=== PATIENT | male | born 1990 | race Caucasian/White ===

== ENCOUNTER 2017-04-04 11:16 | Emergency (ER) | payer SELFPAY, BC | END 2017-04-04 12:03 | disposition home or self-care (01) | LOC: M ED 11:16 | DX: L03.211 Cellulitis of face (principal); F17.210 Nicotine dependence, cigarettes, uncomplicated | CPT/HCPCS: 99282 ==

== ENCOUNTER → 2017-06-01 | Outpatient (CLI) | payer MEDICAID, OTHER | LOC: M RAD 11:45 | DX: G89.4 Chronic pain syndrome (principal) | CPT/HCPCS: 72052 ==

== ENCOUNTER → 2017-06-01 | Outpatient (REF) | payer MEDICAID ==
[2017-06-01 17:08] LABS: BASO # 0.1 10^3/uL (0.0-0.2); BASO % 0.9 % (0.0-1.0); EOS # 0.2 10^3/uL (0.0-0.50); EOS % 3.5 % (0.0-3.0); HEMATOCRIT 46.4 % (42.0-52.0); HEMOGLOBIN 16.3 g/dl (14.0-18.0); IMMATURE GRANULOCYTE % 0.1 % (0-3.0); LYMPH % 28.2 % (24.0-44.0); MEAN CORPUSCULAR HEMOGLOBIN 30.6 pg (27.0-33.0); MEAN CORPUSCULAR HGB CONC 35.1 g/dl (32.0-36.5); MEAN CORPUSCULAR VOLUME 87.2 fl (80.0-96.0); MONO # 0.5 10^3/uL (0.0-0.8); MONO % 7.8 % (0.0-5.0); NEUTROPHILS # 4.1 10^3/uL (1.8-7.7); NEUTROPHILS % 59.5 % (36.0-66.0); PLATELET COUNT, AUTOMATED 254 10^3/uL (150-450); RED BLOOD COUNT 5.32 10^6/uL (4.30-6.10); RED CELL DISTRIBUTION WIDTH 11.7 % (11.5-14.5); WHITE BLOOD COUNT 6.9 10^3/uL (4.0-10.0)
[2017-06-01 17:27] LABS: ALBUMIN 4.4 GM/DL (3.2-5.2); ALBUMIN/GLOBULIN RATIO 1.38 (1.00-1.93); ALKALINE PHOSPHATASE 84 U/L (45-117); ALT/SGPT 19 U/L (12-78); ANION GAP 9 MEQ/L (8-16); AST/SGOT 13 U/L (7-37); BILIRUBIN,TOTAL 0.4 MG/DL (0.2-1.0); BLOOD UREA NITROGEN 22 MG/DL (7-18); CALCIUM LEVEL 9.2 MG/DL (8.5-10.1); CARBON DIOXIDE LEVEL 27 MEQ/L (21-32); CHLORIDE LEVEL 107 MEQ/L (98-107); CHOLESTEROL LEVEL 191 MG/DL (<200); CHOLESTEROL RISK RATIO 4.897 (<5); CREATININE FOR GFR 1.05 MG/DL (0.70-1.30); GLOMERULAR FILTRATION RATE > 60.0 (>60); GLUCOSE, FASTING 103 MG/DL (70-100); HDL CHOLESTEROL 39 MG/DL (>40); LDL CHOLESTEROL 132.2 MG/DL (<100); NON-HDL-C 152 MG/DL; POTASSIUM SERUM 4.7 MEQ/L (3.5-5.1); SODIUM LEVEL 143 MEQ/L (136-145); THYROID STIMULATING HORMONE 0.906 uIU/ML (0.358-3.740); TOTAL PROTEIN 7.6 GM/DL (6.4-8.2); TRIGLYCERIDES LEVEL 99 MG/DL (<150)
[2017-06-01 21:18] LABS: ESTIMATED AVERAGE GLUCOSE 111 MG/DL (60-110); HEMOGLOBIN A1c 5.5 %
[2017-06-04 10:37] LABS: HIV 1&2 SCREEN CENTAUR NEGATIVE (NEGATIVE)
== END ==
LOC: M LAB REF 16:08
DX: Z13.9 Encounter for screening, unspecified (principal)

== ENCOUNTER 2017-07-02 03:54 | Emergency (ER) | payer OTHER, MEDICAID ==
[2017-07-02] MEDS ORDERED: CLINDAMYCIN 150 MG CAP PO (06:30)
[2017-07-02] MEDS ORDERED: NORCO 5/325MG TABLET (BULK FOR ED) PO (06:30)
== END 2017-07-02 07:20 | disposition home or self-care (01) ==
LOC: M ED 03:54
DX: S02.5XXA Fracture of tooth (traumatic), initial encounter for closed fracture (principal); X58.XXXA Exposure to other specified factors, initial encounter; Y92.89 Other specified places as the place of occurrence of the external cause
CPT/HCPCS: 99283

== ENCOUNTER → 2017-10-19 | Outpatient (CLI) | payer OTHER, MEDICAID | LOC: M PAIN 10:00 | DX: M54.12 Radiculopathy, cervical region (principal); M79.1 Myalgia; F17.210 Nicotine dependence, cigarettes, uncomplicated; J30.81 Allergic rhinitis due to animal (cat) (dog) hair and dander; F41.9 Anxiety disorder, unspecified; F32.9 Major depressive disorder, single episode, unspecified; Z79.1 Long term (current) use of non-steroidal anti-inflammatories (NSAID); Z91.018 Allergy to other foods | CPT/HCPCS: G0463 ==

== ENCOUNTER → 2017-11-16 | Outpatient (CLI) | payer OTHER, MEDICAID | LOC: M PAIN 10:15 | DX: M54.2 Cervicalgia (principal); M79.1 Myalgia; F17.210 Nicotine dependence, cigarettes, uncomplicated; Z79.899 Other long term (current) drug therapy; J30.81 Allergic rhinitis due to animal (cat) (dog) hair and dander; Z91.018 Allergy to other foods | CPT/HCPCS: G0463 ==

== ENCOUNTER → 2018-01-03 | Outpatient (CLI) | payer OTHER, MEDICAID | LOC: M PAIN 10:00 | DX: M54.12 Radiculopathy, cervical region (principal); M79.1 Myalgia; F41.9 Anxiety disorder, unspecified; F32.9 Major depressive disorder, single episode, unspecified; F17.210 Nicotine dependence, cigarettes, uncomplicated; J30.81 Allergic rhinitis due to animal (cat) (dog) hair and dander; Z79.899 Other long term (current) drug therapy; Z91.018 Allergy to other foods | CPT/HCPCS: G0463 ==

== ENCOUNTER → 2018-01-21 | Outpatient (CLI) | payer OTHER | LOC: M RAD 12:59 | DX: M54.2 Cervicalgia (principal) | CPT/HCPCS: 72141 ==

== ENCOUNTER 2018-01-29 23:05 | Emergency (ER) | payer OTHER ==
[2018-01-29] MEDS: BACTRIM 160MG/800MG DS TAB PO (23:47)
== END 2018-01-30 01:31 | disposition home or self-care (01) ==
LOC: M ED 01-30 01:31
DX: L02.211 Cutaneous abscess of abdominal wall (principal); L02.31 Cutaneous abscess of buttock; L72.9 Follicular cyst of the skin and subcutaneous tissue, unspecified; Z91.018 Allergy to other foods; Z91.040 Latex allergy status; F17.210 Nicotine dependence, cigarettes, uncomplicated
CPT/HCPCS: 76857

== ENCOUNTER → 2018-01-30 | Outpatient (CLI) | payer OTHER, MEDICAID | LOC: M PAIN 13:45 | DX: Z53.29 Procedure and treatment not carried out because of patient's decision for other reasons (principal) ==

== ENCOUNTER 2018-02-01 22:03 | Emergency (ER) | payer OTHER, MEDICAID ==
[2018-02-01] MEDS: LIDOCAINE 1% MDV 20ML VIAL SC (22:45)
[2018-02-01] MEDS: NORCO, ANEXSIA 5/325MG TABLET (HYDROcodone/ACETAMINOPHEN) PO (23:21)
== END 2018-02-01 23:45 | disposition home or self-care (01) ==
LOC: M ED 23:45
DX: L02.214 Cutaneous abscess of groin (principal); F17.200 Nicotine dependence, unspecified, uncomplicated; Z79.899 Other long term (current) drug therapy; Z79.2 Long term (current) use of antibiotics; Z91.018 Allergy to other foods; Z91.040 Latex allergy status
CPT/HCPCS: 87186

== ENCOUNTER 2018-02-03 18:54 | Emergency (ER) | payer OTHER, MEDICAID ==
[2018-02-03] MEDS: NORCO, ANEXSIA 5/325MG TABLET (HYDROcodone/ACETAMINOPHEN) PO (19:32)
== END 2018-02-03 19:51 | disposition home or self-care (01) ==
LOC: M ED 18:54
DX: L02.214 Cutaneous abscess of groin (principal); F98.8 Other specified behavioral and emotional disorders with onset usually occurring in childhood and adolescence; Z79.899 Other long term (current) drug therapy; Z79.2 Long term (current) use of antibiotics
CPT/HCPCS: 99283

== ENCOUNTER 2018-02-04 12:51 | Emergency (ER) | payer OTHER ==
[2018-02-04] MEDS: METHOCARBAMOL 500 MG TAB PO (17:15)
[2018-02-04] MEDS: NORCO, ANEXSIA 5/325MG TABLET (HYDROcodone/ACETAMINOPHEN) PO (17:15)
== END 2018-02-04 18:27 | disposition home or self-care (01) ==
LOC: M ED 12:51
DX: S16.1XXA Strain of muscle, fascia and tendon at neck level, initial encounter (principal); X58.XXXA Exposure to other specified factors, initial encounter; Y92.099 Unspecified place in other non-institutional residence as the place of occurrence of the external cause; Y93.9 Activity, unspecified; Y99.9 Unspecified external cause status; F90.9 Attention-deficit hyperactivity disorder, unspecified type; Z79.899 Other long term (current) drug therapy; Z91.040 Latex allergy status; Z91.018 Allergy to other foods
CPT/HCPCS: 72125

== ENCOUNTER → 2018-02-07 | Outpatient (CLI) | payer OTHER ==
[2018-02-07 14:15] LABS: FREE T4 0.98 NG/DL (0.76-1.46)
[2018-02-08 10:40] LABS: TISSUE TRANSGLUTAMINASE IgA <2 U/mL (0-3)
== END ==
LOC: M LAB 13:09
DX: R19.7 Diarrhea, unspecified (principal)
CPT/HCPCS: 84443

== ENCOUNTER → 2018-02-08 | Outpatient (REF) | payer OTHER | LOC: M LAB REF 13:36 | DX: R19.7 Diarrhea, unspecified (principal) ==

== ENCOUNTER → 2018-02-14 | Outpatient (CLI) | payer OTHER, MEDICAID | LOC: M PAIN 15:30 | DX: M47.812 Spondylosis without myelopathy or radiculopathy, cervical region (principal); M12.9 Arthropathy, unspecified; M79.18 Myalgia, other site; F41.9 Anxiety disorder, unspecified; F32.9 Major depressive disorder, single episode, unspecified; F17.210 Nicotine dependence, cigarettes, uncomplicated; J30.81 Allergic rhinitis due to animal (cat) (dog) hair and dander; Z79.899 Other long term (current) drug therapy; Z91.018 Allergy to other foods | CPT/HCPCS: G0463 ==

== ENCOUNTER → 2018-02-18 | Outpatient (CLI) | payer OTHER ==
[~2018-02-18] MED LIST: E-Z-GAS II EFFERVESCENT PACKET (SODIUM BICARB./CITRIC ACID/SIMETHICONE) As Ordered; E-Z-HD 98% w/w 340GM SUSP BTL As Ordered; E-Z-PAQUE 96% w/w SUSP 176GM BTL As Ordered
== END ==
LOC: M RAD 08:33
DX: R19.7 Diarrhea, unspecified (principal)
CPT/HCPCS: 74250

== ENCOUNTER 2018-04-16 10:51 | Day surgery (SDC) | payer OTHER ==
[~2018-04-16] VITALS: Ht 180.3 cm; Wt 83.8 kg
[~2018-04-16 10:51] MED LIST changes: +BACT800T5 PO; +CLEO300C2 PO; +CLIN150C14 PO; -E-Z-GAS II EFFERVESCENT PACKET (SODIUM BICARB./CITRIC ACID/SIMETHICONE) As Ordered; -E-Z-HD 98% w/w 340GM SUSP BTL As Ordered; -E-Z-PAQUE 96% w/w SUSP 176GM BTL As Ordered; +ESCI10TA2 PO; +KEFL500C17 PO; +LIDOCAINE 2% INJ 100 MG/5 ML SDV (FOR ANES.) As Ordered ONE; +MEDICAL MARIJUANA; +METH1TAB40 PO; +NORCOTAB PO; +PROPOFOL 200 MG/20 ML VIAL As Ordered ONE; +TIZA2CAP PO
--- NOTE | 2018-04-16 12:37 | ROOR ---
Patient Name: Kushal Mathis Procedure Date: 04/16/2018 12:21 PM Date of : 1990 Age: 27 Room: [facility] Gender: Male Note Status: Finalized Procedure: Upper GI endoscopy Indications: Generalized abdominal pain, Suspected irritable bowel syndrome, Endoscopy to assess diarrhea in patient suspected of having disease of the small-bowel Providers: Carson DUBON MD Referring MD: Miles BOOGIE MD Requesting Provider: Medicines: Monitored Anesthesia Care Complications: No immediate complications. Procedure: Pre-Anesthesia Assessment: - The heart rate, respiratory rate, oxygen saturations, blood pressure, adequacy of pulmonary ventilation, and response to care were monitored throughout the procedure. The Endoscope was introduced through the mouth, and advanced to the third part of duodenum. The upper GI endoscopy was accomplished without difficulty. The patient tolerated the procedure well. Findings: The esophagus was normal. The stomach was normal. The examined duodenum was normal. Biopsies for histology were taken with a cold forceps in the second portion of the duodenum and in the third portion of the duodenum for evaluation of celiac disease. Impression: - Normal esophagus. - Normal stomach. - Normal examined duodenum. - Biopsies were taken with a cold forceps for evaluation of celiac disease. Recommendation: - Observe patient's clinical course. - Telephone endoscopist for pathology results in 2 weeks. - Use Levsin, NuLev (hyoscyamine) 1-2 tabs PO q 12 hrs prn. - (the script was sent to your pharmacy on file) Carson Dubon MD Carson DUBON MD 04/16/2018 12:37:00 PM This report has been signed electronically. Number of Addenda: 0 Note Initiated On: 04/16/2018 12:21 PM Estimated Blood Loss: Estimated blood loss: none.
[2018-04-16] MEDS ORDERED: PROPOFOL 200 MG/20 ML VIAL As Ordered ONE (12:38)
--- NOTE | 2018-04-16 12:49 | ROOR ---
Patient Name: Kushal Mathis Procedure Date: 04/16/2018 12:22 PM Date of : 1990 Age: 27 Room: [facility] Gender: Male Note Status: Finalized Procedure: Colonoscopy Indications: Generalized abdominal pain, Clinically significant diarrhea of unexplained origin, Irritable bowel syndrome with diarrhea Providers: Carson DUBON MD Referring MD: Miles BOOGIE MD Requesting Provider: Medicines: Monitored Anesthesia Care Complications: No immediate complications. Procedure: Pre-Anesthesia Assessment: - The heart rate, respiratory rate, oxygen saturations, blood pressure, adequacy of pulmonary ventilation, and response to care were monitored throughout the procedure. The Colonoscope was introduced through the anus and advanced to 15 cm into the ileum. The colonoscopy was performed without difficulty. The patient tolerated the procedure well. The quality of the bowel preparation was fair. Findings: The perianal and digital rectal examinations were normal. The terminal ileum appeared normal. The colon (entire examined portion) appeared normal. Biopsies for histology were taken with a cold forceps for evaluation of microscopic colitis. Impression: - Preparation of the colon was fair. - The terminal ileum was normal. - The entire colon is normal. Biopsied. - Small internal hemorrhoids. - (Irritable Bowel Syndrome/IBS suspected.) Recommendation: - Use Symax-SR 0.375 mg at 1 tab PO BID. - (the script was sent to your pharmacy on file) Carson Dubon MD Carson DUBON MD 04/16/2018 12:48:27 PM This report has been signed electronically. Number of Addenda: 0 Note Initiated On: 04/16/2018 12:22 PM Estimated Blood Loss: Estimated blood loss: none.
[2018-04-16 13:30] VITALS: BP 126/83
== END 2018-04-16 13:39 | disposition home or self-care (01) ==
LOC: M OPP 10:51
PROVIDERS: ATTEND Internal Medicine Gastroenterology
DX: K64.8 Other hemorrhoids (principal); R10.84 Generalized abdominal pain; R19.7 Diarrhea, unspecified; K58.0 Irritable bowel syndrome with diarrhea; I10 Essential (primary) hypertension; Z79.899 Other long term (current) drug therapy; Z91.018 Allergy to other foods; Z91.040 Latex allergy status; Z87.828 Personal history of other (healed) physical injury and trauma; F17.210 Nicotine dependence, cigarettes, uncomplicated

== ENCOUNTER 2018-04-16 21:59 | Emergency (ER) | payer OTHER ==
[~2018-04-16] VITALS: Ht 180.3 cm; Wt 81.8 kg
[2018-04-16 21:59] VITALS: BP 157/88
[~2018-04-16 21:59] MED LIST changes: -LIDOCAINE 2% INJ 100 MG/5 ML SDV (FOR ANES.) As Ordered ONE; -PROPOFOL 200 MG/20 ML VIAL As Ordered ONE
== END 2018-04-17 00:28 | disposition left against medical advice (07) ==
LOC: M ED 21:59
DX: Z53.29 Procedure and treatment not carried out because of patient's decision for other reasons (principal)

== ENCOUNTER → 2018-04-24 | Outpatient (CLI) | payer OTHER, MEDICAID ==
[~2018-04-24] MED LIST changes: +BUPIVACAINE HCL 0.25% 10 ML VIAL As Ordered ONE; +BUPIVACAINE HCL 0.25% 30 ML VIAL As Ordered ONE; +HYOS0.374 PO; +ONDA4TAB6 PO; +TRIAMCINOLONE ACETONIDE SUSP 40 MG/ML VIAL (J3301) As Ordered ONE; +VENL37.52 PO; +diazePAM 5 MG TAB As Ordered ONE; +oxyCODONE 5MG TAB As Ordered ONE
--- NOTE | 2018-05-13 00:27 | ECWPNPC ---
PATIENT NAME: TYLER APPLE : 1990 GENDER: MALE VISIT DATE: 04/24/2018 DISCHARGE DATE: 04/24/18 1435 VISIT LOCKED DATE TIME: PHYSICIAN: JOSE DOTSON MD RESOURCE: JOSE DOTSON MD REASON FOR APPOINTMENT 1. TPI, OKAY TO BOOK UNTIL 04/29/18 HISTORY OF PRESENT ILLNESS HISTORY OF PRESENT ILLNESS: PAIN THE PATIENT DESCRIBES THE PAIN... FALL RISK SCREENING: SCREENING :NO FALLS IN THE PAST YEAR CURRENT MEDICATIONS TAKING TIZANIDINE HCL 2 MG TABLET 1 TABLET NEEDED ORALLY FOR SPASMS AND PAIN BEFORE BEDTIME MAY REPEAT IN 4 HRS MDD2, NOTES: 2 WEEKS AGO TAKING METHOCARBAMOL 750 MG TABLET 1 TAB ORALLY TID PRN FOR SPASMS AND PAIN, NOTES: 04/24 1030 NOT-TAKING CELEBREX 200 MG CAPSULE 1 CAPSULE WITH FOOD ORALLY ONCE A DAY, NOTES: INSURANCE WOULDN'T COVER NOT-TAKING IBUPROFEN 200 MG TABLET 4-5 TAB ORALLY THREE TIMES A DAY NOT-TAKING ALEVE 220 MG TABLET 1 TABLET WITH FOOD OR MILK NEEDED ORALLY EVERY 12 HRS NOT-TAKING MAY USE MEDICAL MARIJUANA VAPOR DIRECTED, NOTES: HAS BEEN SMOKING REGULAR-NOT MEDICAL MEDICATION LIST REVIEWED AND RECONCILED WITH THE PATIENT PAST MEDICAL HISTORY NECK AND BACK PAIN ANXIETY, DEPRESSION, HX ADHD SCOLIOSOS ALLERGIES PETS: WATERY EYES AND ITCHING: ALLERGY COCONUTS: THROAT SWELLS: ALLERGY LATEX (FOR ALLERGY USE ONLY): RASH.HIVES: ALLERGY SURGICAL HISTORY EGD, COLONOSCOPY 04/16/18 FAMILY HISTORY FATHER: ALIVE, DIAGNOSED WITH HYPERTENSION, PSYCHIATRIC CONDITIONS, SUBSTANCE ABUSE MOTHER: ALIVE 50 YRS, DIAGNOSED WITH DIABETES, PSYCHIATRIC CONDITIONS, SUBSTANCE ABUSE SIBLINGS: ALIVE, DIAGNOSED WITH PSYCHIATRIC CONDITIONS, SUBSTANCE ABUSE 1 SISTER(S) - HEALTHY. 1 SON(S) - HEALTHY. SOCIAL HISTORY GENERAL: TOBACCO USE ARE YOU A:CURRENT SMOKER ARE YOU INTERESTED IN QUITTING?READY TO QUIT HAS TRIED CUTTING BACK, HAS TRIED NICOTINE PATCHES PREVIOUS QUIT ATTEMPTS?YES, MORE THAN 6 MONTHS AGO. COUNSELED THE PATIENT ON TOBACCO USE, CESSATION [id number]/16/2019 HOW MANY CIGARETTES A DAY DO YOU SMOKE?5 OR LESS DOWN TO < 1/DAY HOW SOON AFTER YOU WAKE UP DO YOU SMOKE YOUR FIRST CIGARETTE?AFTER 60 MIN HOW OFTEN DO YOU SMOKE CIGARETTES?SOME DAYS, BUT NOT EVERY DAY PATIENT COUNSELED ON THE DANGERS OF TOBACCO USE AND URGED TO QUIT:04/24/2018 ADDITIONAL FINDINGS: TOBACCO USERCIGAR SMOKER SMOKING CESSATION INFORMATION GIVEN02/14/2018 ALCOHOL SCREENING DID YOU HAVE A DRINK CONTAINING ALCOHOL IN THE PAST YEAR?NO POINTS0 INTERPRETATIONNEGATIVE RECREATIONAL DRUG USE DRUG USE?YES MARIJUANA CAFFEINE CAFFEINE USE?YES HOW OFTEN AND HOW MUCH? 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 DIET: REGULAR. EXERCISE: WALKS. MARITAL STATUS: SINGLE. OTHERS AT HOME: OTHER NON-RELATIVE, SPOUSE. PAIN CLINIC PFS, CLERGY, PUBLIC HEALTH REFERRALS PFS REFERRAL NEEDED?NO CLERGY REFERRAL NEEDED?NO PUBLIC HEALTH REFERRAL NEEDED?NO WAS THE PROVIDER NOTIFIED OF ANY PERTINENT INFO? N/A HAS THE PATIENT BEEN EDUCATED REGARDING HIS/HER PLAN OF CARE?YES HAS THE PATIENT BEEN EDUCATED REGARDING PAIN, THE RISK FOR PAIN, THE IMPORTANCE OF EFFECTIVE PAIN MANAGEMENT, AND THE PAIN ASSESSMENT PROCESS?YES ADVANCE DIRECTIVE ADVANCE DIRECTIVE DISCUSSED WITH PATIENT:YES 04/24/18 PT. DOES NOT HAVE ANY ADVANCED DIRECTIVES AND HE DECLINED INFORMATION ON HCP AT THIS TIME. AD REVIEWED WITH PT 01/03/18 1988 LAS04/24/18 1310 REVIEWED WITH PT. AD. HOSPITALIZATION/MAJOR DIAGNOSTIC PROCEDURE DENIES PAST HOSPITALIZATION REVIEW OF SYSTEMS REVIEWED BY: PROVIDER: . CONSTITUTIONAL: ANY CHANGE IN YOUR MEDICAL CONDITION? NO . CHILLS NO . FEVER NO . INFECTION: DO YOU HAVE NEW INFECTIONS? NO . DO YOU HAVE HISTORY OF MRSA? NO . MUSCULOSKELETAL: ANY NEW PATTERNS OF PAIN OR NUMBNESS? NO . GASTROENTEROLOGY: ANY NEW CHANGE IN BOWEL CONTROL? NO . GENITOURINARY: ANY NEW CHANGE IN BLADDER CONTROL? NO . IS THERE A CHANCE YOU COULD BE ? NO . HEMATOLOGY/LYMPH: DO YOU TAKE ANY BLOOD THINNERS? (FOR EXAMPLE- COUMADIN, PLAVIX, AGGRENOX, PLATEL, PRADAXA, OR XARELTO) NO . WHEN WAS YOUR LAST DOSE? DATE: TIME: . NEUROLOGY: HAVE YOU FALLEN IN THE PAST 12 MONTHS? YES, FELL DOWN THE STAIRS APPROX. 2 MONTHS AGO, NOT SEEN AFTER, ONLY BRUISES . ANY NEW EXTREMITY NUMBNESS OR WEAKNESS? NO . CARDIOLOGY: DO YOU HAVE A PACEMAKER OR DEFIBRILLATOR? NO . RESPIRATORY: HAVE YOU BEEN SICK IN THE PAST WEEK? YES . FEVER YES 1 WEEK AGO FOR 2 DAYS, DR. DOTSON AWARE . FLU LIKE SYMPTOMS? NO . COUGH NO . INTEGUMENTARY: DO YOU HAVE ANY RASHES OR OPEN SORES? NO . ALLERGIC/IMMUNO: ARE YOU ALLERGIC TO IV DYE? NO . ANY NEW ALLERGIES? NO . PSYCHIATRIC: DO YOU HAVE THOUGHTS OF HURTING YOURSELF OR SOMEONE ELSE? NO . ARE YOU ABUSED, NEGLECTED, OR IN AN UNSAFE ENVIRONMENT? NO . ENDOCRINOLOGY: ARE YOU DIABETIC? NO . OTHER: DO YOU NEED ANY PRESCRIPTIONS? NO . IF YES, PLEASE LIST: ____ . ANY NEW PROBLEMS WITH YOUR MEDICATIONS? NO . WHEN DID YOU LAST EAT? 04/24 929 ISIDRA, REPORTED TO DR. DOTSON . WHEN DID YOU LAST DRINK? 04/24 929 . WHAT DID YOU LAST DRINK? ORANGE HI-C REPORTED TO DR. DOTSON . NAME OF PERSON DRIVING YOU HOME? CAROLINA POLLACK . DO YOU HAVE ANY OTHER QUESTIONS OR CONCERNS NO PT HAS NOT HAD ANY VACCINES IN THE PAST 30 DAYS . VITAL SIGNS WT 189.8 LBS, HT 71 IN, BMI 26.47 INDEX, BP 152/86 MM HG, HR 121 /MIN, RR 16 /MIN, TEMP 97.2 F, OXYGEN SAT % 98, NA INITIALS MP 1143, REVIEWED BY: 04/24/17 1220 HR RECHECKED Sam PROCTOR RN. ASSESSMENTS MYALGIA, OTHER SITE - M79.18 (PRIMARY) PROCEDURES PN TRIGGER POINT INJECTION WITH STEROIDS PRE PROCEDURE DIAGNOSIS 1. MYALGIA 2. PAIN AT BILATERAL THORACIC AREA POST PROCEDURE DIAGNOSIS 1. MYALGIA 2. PAIN AT BILATERAL THORACIC AREA PROCEDURE TRIGGER POINT INJECTION AT BILATERAL THORACIC AREA SURGEON DR. JOSE DOTSON HOME CARE PHYSICAL THERAPIST NONE ANESTHESIA LOCAL PRE PROCEDURE NOTE THE PATIENT HAS A HISTORY OF CHRONIC PAIN AT THE RIGHT AND LEFT THORACIC AREA. I EVALUATE THE PATIENT AND REVIEWED THE CHART. THERE IS EVIDENCE OF BANDS OF TISSUE WITH RESTRICTION OF MOVEMENT AND PRESENCE OF TRIGGER POINT AT THE AFFECTED AREA. I WENT OVER THE RISKS, ALTERNATIVES, AND BENEFITS ASSOCIATED WITH THIS PROCEDURE. THE PATIENT WOULD LIKE TO PROCEED AND GIVE CONSENT TO PERFORMED THE PROCEDURE. THE PATIENT DENIES UNEXPLAINABLE WEIGHT LOSS, FEVER, CHILLS, OR NEW CHANGES IN URINARY OR BOWEL CONTROL DESCRIPTION OF PROCEDURE THE PATIENT WAS BROUGHT TO THE PROCEDURE ROOM AND PLACED IN THE SITTING POSITION. THE AREA WAS CLEANED WITH ALCOHOL. THE PROCEDURE WAS DONE USING ASEPTIC STERILE TECHNIQUE. I CHECKED LATERALITY AND THE LEVEL WHERE THE PROCEDURE WAS GOING TO BE PERFORMED WITH THE PATIENT AND THE SUPPORTING STAFF AT THE MOMENT OF THE TIME OUT IN THE PROCEDURE ROOM. USING A 25-GAUGE NEEDLE, TRIGGER POINTS WERE INJECTED AT THE RIGHT AND LEFT THORACIC AREA WITH A TOTAL OF 40 ML OF BUPIVACAINE 0.25% AND KENALOG 40 MG. THERE WAS NO EVIDENCE OF BLOOD, PARESTHESIA OR CEREBROSPINAL FLUID DURING THE PROCEDURE. THE PATIENT WAS SENT TO THE RECOVERY ROOM. THE PATIENT WAS MOVING THE EXTREMITIES AND DOING WELL. THERE WAS NO COMPLICATION DURING THE PROCEDURE POST PROCEDURE NOTE THE PATIENT WILL BE SEEN IN A FOLLOW UP IN THE NEXT FEW WEEKS. INSTRUCTIONS WERE GIVEN, QUESTIONS WERE ANSWERED, AND THE PATIENT EXPRESSED UNDERSTANDING AND AGREES WITH THE PLAN. I, KYLE GONZALEZ, DOCUMENTED THE ABOVE INFORMATION ACTING A SCRIBE FOR DR. DOTSON. I HAVE REVIEWED THE ABOVE DOCUMENT, WRITTEN BY KYLE KRAUSEIBMarlo AND I VERIFY THAT IT IS ACCURATE. PROCEDURE CODES 38736 INJ TRIGGER POINT 04/10 [facility] [place] DISPOSITION & COMMUNICATION FOLLOW UP 3 WEEKS ELECTRONICALLY SIGNED BY JOSE DOTSON MD, MD ON 05/12/2018 AT 05:24 PM EST DISCLAIMER : THIS IS A VISIT SUMMARY EXTRACTED FROM THE [employer] CHART. IT IS NOT A COPY OF THE [employer] PROGRESS NOTE. [email or web address]
== END ==
LOC: M PAIN 11:45
PROVIDERS: ATTEND Anesthesiology
DX: M79.18 Myalgia, other site (principal); M54.5 Low back pain; F32.9 Major depressive disorder, single episode, unspecified; F41.9 Anxiety disorder, unspecified; F17.210 Nicotine dependence, cigarettes, uncomplicated; J30.81 Allergic rhinitis due to animal (cat) (dog) hair and dander; Z79.899 Other long term (current) drug therapy; Z91.018 Allergy to other foods; Z91.040 Latex allergy status
CPT/HCPCS: 20552; J3301

== ENCOUNTER 2018-05-11 17:14 | Emergency (ER) | payer MEDICAID, OTHER, SELFPAY ==
[~2018-05-11] VITALS: Ht 180.3 cm; Wt 81.8 kg
[~2018-05-11 17:14] MED LIST changes: -BUPIVACAINE HCL 0.25% 10 ML VIAL As Ordered ONE; -BUPIVACAINE HCL 0.25% 30 ML VIAL As Ordered ONE; +HYDR-3715 PO; -HYOS0.374 PO; -NORCOTAB PO; -ONDA4TAB6 PO; -TRIAMCINOLONE ACETONIDE SUSP 40 MG/ML VIAL (J3301) As Ordered ONE; -VENL37.52 PO; -diazePAM 5 MG TAB As Ordered ONE; -oxyCODONE 5MG TAB As Ordered ONE
[2018-05-11] MEDS ORDERED: VENL37.52 PO (17:34)
[2018-05-11] MEDS ORDERED: CLIN150C14 PO (17:37)
[2018-05-11] MEDS ORDERED: HYOS0.374 PO (17:37)
[2018-05-11] MEDS ORDERED: KETOROLAC 30 MG/ML VIAL (J1885) IV ONE (18:00)
[2018-05-11] MEDS ORDERED: ONDANSETRON 4MG/2ML VIAL (J2405) IV ONE (18:00)
[2018-05-11] MEDS ORDERED: NS 1,000 ML IV ONE (18:00)
[2018-05-11 18:13] LABS: BASO % 0.3 % (0.0-1.0); EOS # 0.1 10^3/uL (0.0-0.50); EOS % 1.2 % (0.0-3.0); HEMATOCRIT 44.1 % (42.0-52.0); HEMOGLOBIN 15.7 g/dl (13.5-17.5); LYMPH % 26.4 % (24.0-44.0); MEAN CORPUSCULAR HEMOGLOBIN 31.2 pg (27.0-33.0); MEAN CORPUSCULAR HGB CONC 35.6 g/dl (32.0-36.5); MEAN CORPUSCULAR VOLUME 87.7 fl (80.0-96.0); MONO # 0.7 10^3/uL (0.0-0.8); MONO % 6.1 % (0.0-5.0); NEUTROPHILS # 7.4 10^3/uL (1.8-7.7); NEUTROPHILS % 65.6 % (36.0-66.0); PLATELET COUNT, AUTOMATED 282 10^3/uL (150-450); RED BLOOD COUNT 5.03 10^6/uL (4.30-6.10); WHITE BLOOD COUNT 11.2 10^3/uL (4.0-10.0)
[2018-05-11 18:39] LABS: ALBUMIN 4.2 GM/DL (3.2-5.2); ALT/SGPT 23 U/L (12-78); BILIRUBIN,DIRECT 0.1 MG/DL (0.0-0.2); BILIRUBIN,TOTAL 0.4 MG/DL (0.2-1.0); BLOOD UREA NITROGEN 16 MG/DL (7-18); CARBON DIOXIDE LEVEL 31 MEQ/L (21-32); CHLORIDE LEVEL 103 MEQ/L (98-107); CREATININE FOR GFR 0.88 MG/DL (0.70-1.30); GLOMERULAR FILTRATION RATE > 60.0 (>60); GLUCOSE, FASTING 86 MG/DL (70-100); POTASSIUM SERUM 4.2 MEQ/L (3.5-5.1); SODIUM LEVEL 139 MEQ/L (136-145); TOTAL PROTEIN 7.4 GM/DL (6.4-8.2)
[2018-05-11] MEDS ORDERED: ISOVUE-370 76% 100ML VIAL (Q9967) As Ordered ONE (18:44)
--- NOTE | 2018-05-11 19:06 | REP ---
Clinical: Abdominal pain and diarrhea. Technique: Axial contrast enhanced images from the lung bases to the pubic symphysis using 100 ml Isovue 370 intravenous contrast material with coronal and sagittal re-formations. Comparison: None. Findings: The lung bases are clear. Visualized heart and pericardium normal. Liver, spleen, pancreas, gallbladder, bilateral adrenal glands and kidneys are normal. The enteric system is without obstruction or acute inflammatory process. Normal terminal ileum and appendix are identified in the right lower quadrant. Three radiodense similar looking structures are identified within the colon which may represent swallowing capsules. Pelvis demonstrates collapsed normal bladder and age appropriate prostate/seminal vesicles. No free air. No free fluid. No significant adenopathy. Abdominal aorta and vasculature normal. Musculoskeletal structures are intact. Impression: No acute abdominopelvic pathology appreciated. Ascites, focal inflammatory stranding, or adenopathy. Electronically Signed by Fabien Martin MD 05/11/2018 06:57 P
[2018-05-11] MEDS ORDERED: ONDA4TAB6 PO (19:44)
[2018-05-11 19:51] VITALS: BP 154/95
== END 2018-05-11 19:56 | disposition home or self-care (01) ==
LOC: M ED 17:14
DX: M25.9 Joint disorder, unspecified (principal); T36.8X5A Adverse effect of other systemic antibiotics, initial encounter; X58.XXXA Exposure to other specified factors, initial encounter; Y92.89 Other specified places as the place of occurrence of the external cause; A49.02 Methicillin resistant Staphylococcus aureus infection, unspecified site; I10 Essential (primary) hypertension; F90.9 Attention-deficit hyperactivity disorder, unspecified type; F41.9 Anxiety disorder, unspecified; K58.9 Irritable bowel syndrome, unspecified; R51 Headache; Z79.899 Other long term (current) drug therapy; F17.210 Nicotine dependence, cigarettes, uncomplicated
CPT/HCPCS: 36415; 74177; 80048; 80076; 81001; 85025; 96361; 96374; 96375; 99284; J1885; J2405; Q9967

== ENCOUNTER → 2018-06-11 | Outpatient (REF) ==
[~2018-06-11] MED LIST changes: -HYDR-3715 PO; +HYOS0.374 PO; +NORCOTAB PO; +ONDA4TAB6 PO; +VENL37.52 PO
--- NOTE | 2018-06-12 03:36 | REP ---
Clinical: Right knee pain Technique: AP, lateral, bilateral oblique and sunrise views. Findings: The osseous structures and joint spaces are intact and normal. There is no evidence for acute fracture or dislocation. No joint effusion is appreciated. Surrounding soft tissues are unremarkable. No subcutaneous emphysema or radiodense foreign body. Impression: Normal examination. No acute fracture or dislocation. Electronically Signed by Fabien Martin MD 06/12/2018 03:27 A
--- NOTE | 2018-06-12 03:41 | REP ---
Clinical: Pain and disability. Technique: AP, lateral, coned-down views of the lumbosacral spine. Findings: Alignment and lordosis maintained. Vertebral bodies are intact. No acute fracture / compression injury or subluxation. No significant degenerative changes noted. Impression: Essentially normal three-view lumbosacral spine series. Electronically Signed by Fabien Martin MD 06/12/2018 03:32 A
== END ==
LOC: M SMT 10:30
PROVIDERS: ATTEND Internal Medicine
DX: Z00.00 Encounter for general adult medical examination without abnormal findings (principal)

== ENCOUNTER → 2018-07-30 | Outpatient (CLI) | payer OTHER, MEDICAID ==
[~2018-07-30] MED LIST changes: +HYDR-3715 PO; -NORCOTAB PO
--- NOTE | 2018-08-13 02:14 | ECWPNPC ---
PATIENT NAME: TYLER APPLE : 1990 GENDER: MALE VISIT DATE: 07/30/2018 DISCHARGE DATE: 07/30/18 1653 VISIT LOCKED DATE TIME: PHYSICIAN: JOSE DOTSON MD RESOURCE: JOSE DOTSON MD DISCLAIMER : THIS IS A VISIT SUMMARY EXTRACTED FROM THE [employer] CHART. IT IS NOT A COPY OF THE [employer] PROGRESS NOTE. MTDEnrique
== END ==
LOC: M PAIN 14:45
PROVIDERS: ATTEND Anesthesiology
DX: M79.18 Myalgia, other site (principal); M54.2 Cervicalgia; M47.812 Spondylosis without myelopathy or radiculopathy, cervical region; F17.210 Nicotine dependence, cigarettes, uncomplicated; J30.81 Allergic rhinitis due to animal (cat) (dog) hair and dander; Z79.899 Other long term (current) drug therapy; Z91.018 Allergy to other foods; Z91.040 Latex allergy status; Z86.59 Personal history of other mental and behavioral disorders; Z86.14 Personal history of Methicillin resistant Staphylococcus aureus infection

== ENCOUNTER → 2018-09-20 | Outpatient (CLI) | payer OTHER, MEDICAID ==
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
== END ==
LOC: M PAIN 11:30
PROVIDERS: ATTEND Anesthesiology
DX: M54.6 Pain in thoracic spine (principal); G89.29 Other chronic pain; M79.18 Myalgia, other site; Z86.59 Personal history of other mental and behavioral disorders; Z86.14 Personal history of Methicillin resistant Staphylococcus aureus infection; M41.9 Scoliosis, unspecified; F17.210 Nicotine dependence, cigarettes, uncomplicated; Z91.018 Allergy to other foods; Z91.040 Latex allergy status; Z91.09 Other allergy status, other than to drugs and biological substances; Z79.899 Other long term (current) drug therapy

== ENCOUNTER → 2018-09-23 | Outpatient (CLI) | payer OTHER ==
--- NOTE | 2018-09-23 16:01 | REP ---
Thoracic spine three views: There are no comparisons. There is mild scoliosis convex left at the mid thoracic spine. Vertebral body heights, interspacing alignment are otherwise normal. Mineralization is normal. The pedicles are unremarkable. Impression: Mild scoliosis as described, otherwise negative thoracic spine. Electronically Signed by Markell Alvarez MD 09/23/2018 03:52 P
== END ==
LOC: M RAD 15:25
PROVIDERS: ATTEND Anesthesiology
DX: M54.6 Pain in thoracic spine (principal)

== ENCOUNTER → 2018-10-04 | Outpatient (CLI) | payer OTHER, MEDICAID ==
--- NOTE | 2018-10-10 00:17 | ECWPNPC ---
PATIENT NAME: TYLER APPLE : 1990 GENDER: MALE VISIT DATE: 10/04/2018 DISCHARGE DATE: 10/04/18 1548 VISIT LOCKED DATE TIME: PHYSICIAN: JOSE DOTSON MD RESOURCE: JOSE DOTSON MD REASON FOR APPOINTMENT 1. REVIEW X-RAY-LEFT MESSAGE FOR PATIENT THAT HE COULD COME ANYTIME HISTORY OF PRESENT ILLNESS HISTORY OF PRESENT ILLNESS: PAIN THE PATIENT DESCRIBES THE PAIN... 28 YEAR OLD MALE PATIENT WITH A HISTORY OF CHRONIC CERVICAL AND THORACIC PAIN. THE PATIENT DESCRIBES THE PAIN ACHING, BURNING, STABBING, SORE, TENDER, CONTINUOUS, AND DAILY WITH A PAIN SCORE OF 5-10/10 DEPENDING ON PHYSICAL ACTIVITY. THE PATIENT SAYS HE IS USING METHOCARBAMOL AND CELEBREX TO HELP WITH HIS PAIN AND TIZANIDINE TO HELP WITH SLEEP. THE PATIENT SAYS HE IS USING UP TO 5 TABLETS OF THE MUSCLE RELAXANTS DAILY. THE PATIENT SAYS HE IS EXPERIENCING SIDE EFFECTS FROM CELEBREX, SUCH DIARRHEA. PATIENT DENIES UNEXPLAINABLE WEIGHT LOSS, FEVER, CHILLS, NEW CHANGES ON HIS URINARY OR BOWEL CONTROL. FALL RISK SCREENING: SCREENING :NO FALLS REPORTED IN THE LAST YEAR CURRENT MEDICATIONS TAKING TIZANIDINE HCL 2 MG TABLET 1 TABLET NEEDED ORALLY FOR SPASMS AND PAIN BEFORE BEDTIME TAKING CELEBREX 200 MG CAPSULE 1 CAPSULE WITH FOOD ORALLY ONCE A DAY TAKING METHOCARBAMOL 750 MG TABLET 1 TAB ORALLY TID PRN FOR SPASMS AND PAIN NOT-TAKING CYMBALTA 30 MG CAPSULE DELAYED RELEASE PARTICLES 1 CAPSULE ORALLY FOR PAIN ONCE A DAY, NOTES: DIDN'T LIKE; STOPPED TAKING NOT-TAKING IBUPROFEN 200 MG TABLET 4-5 TAB ORALLY THREE TIMES A DAY NOT-TAKING ALEVE 220 MG TABLET 1 TABLET WITH FOOD OR MILK NEEDED ORALLY EVERY 12 HRS NOT-TAKING MAY USE MEDICAL MARIJUANA VAPOR DIRECTED, NOTES: HAS BEEN SMOKING REGULAR-NOT MEDICAL MEDICATION LIST REVIEWED AND RECONCILED WITH THE PATIENT PAST MEDICAL HISTORY NECK AND BACK PAIN ANXIETY, DEPRESSION, HX ADHD SCOLIOSOS MRSA RIGHT KNEE ALLERGIES PETS: WATERY EYES AND ITCHING - ALLERGY COCONUTS: THROAT SWELLS - ALLERGY LATEX (FOR ALLERGY USE ONLY): RASH.HIVES - ALLERGY SURGICAL HISTORY EGD, COLONOSCOPY 04/16/18 FAMILY HISTORY FATHER: ALIVE, DIAGNOSED WITH SUBSTANCE ABUSE, HYPERTENSION, PSYCHIATRIC CONDITIONS MOTHER: ALIVE 50 YRS, SUBSTANCE ABUSE, DIABETES, PSYCHIATRIC CONDITIONS SIBLINGS: ALIVE, PSYCHIATRIC CONDITIONS, SUBSTANCE ABUSE 1 SISTER(S) - HEALTHY. 1 SON(S) - HEALTHY. SOCIAL HISTORY GENERAL: TOBACCO USE ARE YOU A:CURRENT SMOKER ARE YOU INTERESTED IN QUITTING?READY TO QUIT ONLY SMOKES SOCIALLY, NOT EVERYDAY. TRYING TO QUIT ALTOGETHER. PREVIOUS QUIT ATTEMPTS?YES, MORE THAN 6 MONTHS AGO. COUNSELED THE PATIENT ON TOBACCO USE, CESSATION [id number]/2019 HOW MANY CIGARETTES A DAY DO YOU SMOKE?5 OR LESS DOWN TO < 1/DAY HOW SOON AFTER YOU WAKE UP DO YOU SMOKE YOUR FIRST CIGARETTE?AFTER 60 MIN HOW OFTEN DO YOU SMOKE CIGARETTES?SOME DAYS, BUT NOT EVERY DAY PATIENT COUNSELED ON THE DANGERS OF TOBACCO USE AND URGED TO QUIT:09/20/2018 ADDITIONAL FINDINGS: TOBACCO USERCIGAR SMOKER SMOKING CESSATION INFORMATION GIVEN07/30/2018 OTHERS AT HOME: OTHER NON-RELATIVE, SPOUSE. EDUCATION LEVEL OF EDUCATION:NOT FINISHED COLLEGE DIET: REGULAR. LANGUAGE LANGUAGES SPOKEN:BERMUDIAN DOMESTIC VIOLENCE DO YOU FEEL SAFE IN YOUR ENVIRONMENT?YES RECREATIONAL DRUG USE DRUG USE?YES MARIJUANA - STATES HE HAS CUT BACK AND IS TRYING TO STOP EXERCISE: WALKS. LEARNING BARRIERS / SPECIAL NEEDS CHANGE FROM LAST VISIT?NO BARRIERS TO LEARNING?NO HEARING IMPAIRED?NO VISION IMPAIRED?YES :CORRECTIVE LENSES DOESN'T WEAR COGNITIVELY IMPAIRED?NO READINESS TO LEARN?YES LEARNING PREFERENCES?NO LEARNING CAPABILITIES PRESENT?YES EMOTIONAL BARRIERS?NO SPECIAL DEVICES?NO LAST SORTER NEEDED?NO PAIN CLINIC PFS, CLERGY, PUBLIC HEALTH REFERRALS PFS REFERRAL NEEDED?NO CLERGY REFERRAL NEEDED?NO PUBLIC HEALTH REFERRAL NEEDED?NO WAS THE PROVIDER NOTIFIED OF ANY PERTINENT INFO?YES N/A HAS THE PATIENT BEEN EDUCATED REGARDING HIS/HER PLAN OF CARE?YES HAS THE PATIENT BEEN EDUCATED REGARDING PAIN, THE RISK FOR PAIN, THE IMPORTANCE OF EFFECTIVE PAIN MANAGEMENT, AND THE PAIN ASSESSMENT PROCESS?YES LATEX QUESTIONNAIRE LATEX ALLERGY : HAVE YOU EVER DEVELOPED ANY TYPE OF REACTION AFTER HANDLING LATEX PRODUCTS SUCH RUBBER GLOVES, CONDOMS, DIAPHRAGMS, BALLOONS, SOCKS, OR UNDERWEAR?YES - PLEASE INDICATE :RUBBER GLOVES LATEX ALLERGY : HAVE YOU EVER DEVELOPED ANY TYPE OF REACTION DURING OR AFTER DENTAL APPOINTMENT, VAGINAL/RECTAL EXAMINATION, SURGICAL PROCEDURE, OR ANY OTHER EXPOSURE?NO LATEX RISK : HAVE YOU EVER HAD ANY DIFFICULTY BREATHING OR HIVES AFTER EATING OR HANDLING ANY FRUITS, OR VEGETABLES; SUCH KIWI, BANANAS, STONE FRUITS, OR CHESTNUTSNO LATEX RISK : DO YOU HAVE A PREVIOUS PERSONAL HISTORY OF MORE THAN NINE SURGERIES, SPINA BIFIDA, OR REPEATED CATHERTIZATIONS? NO LATEX RISK : ARE YOU FREQUENTLY EXPOSED TO LATEX PRODUCTS IN YOUR OCCUPATION?NO DATE ASKED : 10/04/2018 CAFFEINE CAFFEINE USE?YES HOW OFTEN AND HOW MUCH? OCCASIONAL CUP OF COFFEE ADVANCE DIRECTIVE ADVANCE DIRECTIVE DISCUSSED WITH PATIENT:YES PATIENT DOES NOT HAVE ANY ADVANCED DIRECTIVES AND HE DECLINED INFORMATION ON HCP AT THIS TIME. 10/04/18 SCIENTOLOGY [id number] ATHEIST MARITAL STATUS: SINGLE. 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 REVIEWED WITH PT 01/03/18 0958 LAS04/24/18 1310 REVIEWED WITH PT. ADREVIEWED WITH PATIENT 09/20/18 1153 JSREVIEWED WITH PT 10/04/18 1515 BV. HOSPITALIZATION/MAJOR DIAGNOSTIC PROCEDURE NO HOSPITALIZATION HISTORY. REVIEW OF SYSTEMS REVIEWED BY: PROVIDER: JOSE DOTSON MD . CONSTITUTIONAL: ANY CHANGE IN YOUR MEDICAL CONDITION? NO . CHILLS NO . FEVER NO . INFECTION: DO YOU HAVE NEW INFECTIONS? NO . DO YOU HAVE HISTORY OF MRSA? YES . MUSCULOSKELETAL: ANY NEW PATTERNS OF PAIN OR NUMBNESS? NO . GASTROENTEROLOGY: ANY NEW CHANGE IN BOWEL CONTROL? YES, PT COMPLAINS OF DIARRHEA SINCE STARTING CELEBREX A WEEK AGO. . GENITOURINARY: ANY NEW CHANGE IN BLADDER CONTROL? NO . IS THERE A CHANCE YOU COULD BE ? NO . HEMATOLOGY/LYMPH: DO YOU TAKE ANY BLOOD THINNERS? (FOR EXAMPLE- COUMADIN, PLAVIX, AGGRENOX, PLATEL, PRADAXA, OR XARELTO) NO . WHEN WAS YOUR LAST DOSE? DATE: TIME: . NEUROLOGY: HAVE YOU FALLEN IN THE PAST 12 MONTHS? NO . ANY NEW EXTREMITY NUMBNESS OR WEAKNESS? NO . CARDIOLOGY: DO YOU HAVE A PACEMAKER OR DEFIBRILLATOR? NO . RESPIRATORY: HAVE YOU BEEN SICK IN THE PAST WEEK? YES, PT STATES HE HAD SINUS CONGESTION A FEW DAYS AGO, STATES HE IS FEELING BETTER. . FEVER NO . FLU LIKE SYMPTOMS? NO . COUGH NO . INTEGUMENTARY: DO YOU HAVE ANY RASHES OR OPEN SORES? NO . ALLERGIC/IMMUNO: ARE YOU ALLERGIC TO IV DYE? NO . ANY NEW ALLERGIES? NO . PSYCHIATRIC: DO YOU HAVE THOUGHTS OF HURTING YOURSELF OR SOMEONE ELSE? NO . ARE YOU ABUSED, NEGLECTED, OR IN AN UNSAFE ENVIRONMENT? NO . ENDOCRINOLOGY: ARE YOU DIABETIC? NO . OTHER: DO YOU NEED ANY PRESCRIPTIONS? NO . IF YES, PLEASE LIST: ____ . ANY NEW PROBLEMS WITH YOUR MEDICATIONS? YES, DIARRHEA SINCE STARTING CELEBREX ABOUT A WEEK AGO . WHEN DID YOU LAST EAT? ____ . WHEN DID YOU LAST DRINK? ____ . WHAT DID YOU LAST DRINK? ____ . NAME OF PERSON DRIVING YOU HOME? ____ . DO YOU HAVE ANY OTHER QUESTIONS OR CONCERNS NO . VITAL SIGNS WT 180.4 LBS, HT 71 IN, BMI 25.16 INDEX, BP 125/62 MM HG, HR 86 /MIN, RR 18 /MIN, TEMP 96.6 F, OXYGEN SAT % 97%, NA INITIALS SC 15:04, REVIEWED BY: BV. EXAMINATION GENERAL EXAMINATION: PATIENT IS ALERT O X 3 AND COOPERATIVE. TENDERNESS OVER THE CERVICAL AND THORACIC AREAS. PRESENCE OF BANDS OF TISSUE AND TRIGGER POINTS WITH RESTRICTION OF MOVEMENT OF THE CERVICAL AND THORACIC AREAS. X-RAY OF THE THORACIC SPINE DONE ON 09/23/2018 SHOWS MILD SCOLIOSIS AT THE MID THORACIC SPINE WITH MILD DEGENERATION. ASSESSMENTS CERVICALGIA - M54.2 (PRIMARY) PAIN IN THORACIC SPINE - M54.6 OTHER CHRONIC PAIN - G89.29 MYALGIA, OTHER SITE - M79.18 TREATMENT CERVICALGIA REFILL METHOCARBAMOL TABLET, 750 MG, 1 TAB, ORALLY, TID PRN FOR SPASMS AND PAIN, 30 DAY(S), 80, REFILLS 0 CLINICAL NOTES: WE DISCUSSED SEVERAL ISSUES WITH MR. APPLE'S PAIN MANAGEMENT CASE. THE PATIENT HAD A THORACIC X-RAY DONE ON 09/23/2018 THAT DID NOT OFFER MUCH INSIGHT TO HIS ISSUES SO I AM ORDERING FOR A THORACIC MRI TO BE DONE IN ORDER TO VIEW THE SOFT TISSUE OVER THE AREA TO SEE IF ANY INJECTIONS WILL BE EFFECTIVE FOR HIM. I AM REDUCING AND REFILLED THE METHOCARBAMOL AND THE PATIENT UNDERSTANDS TO REDUCE THE MEDICATION SLOWLY DURING THE DAY. THE PATIENT WILL CONTINUE WITH TIZANIDINE TO HELP WITH SLEEP, WHICH I REFILLED FOR HIM TODAY. THE PATIENT WAS ADVISED TO STOP CELEBREX DUE TO THE ADVERSE SIDE EFFECTS HE WAS EXPERIENCING FROM THE MEDICATION. THE PATIENT WILL FOLLOW UP IN 1 MONTH AFTER THE INJECTION. INSTRUCTIONS WERE GIVEN, QUESTIONS WERE ANSWERED, PATIENT REPORTS UNDERSTANDING AND AGREES WITH THE PLAN. I, TALON BERRIOS, DOCUMENTED THE ABOVE INFORMATION ACTING A SCRIBE FOR DR. DOTSON. I HAVE REVIEWED THE ABOVE DOCUMENT, WRITTEN BY TALON KRAUSEIBMarlo AND I VERIFY THAT IT IS ACCURATE. . OTHERS REFILL TIZANIDINE HCL TABLET, 2 MG, 1 TABLET NEEDED, ORALLY FOR SPASMS AND PAIN, BEFORE BEDTIME, 30 DAY(S), 30, REFILLS 1 PROCEDURE CODES G8427 CURRENT MEDS W/DOSAGES DOCUMENTED G8730 PAIN ASSESS POS TOOL F/U PLAN DOC FA211 ESTABILISHED PATIENT [facility] CHARGE DISPOSITION & COMMUNICATION FOLLOW UP 4 WEEKS (REASON: THORACIC MRI RESULTS) ELECTRONICALLY SIGNED BY JOSE DOTSON MD, MD ON 10/09/2018 AT 05:51 PM EDT DISCLAIMER : THIS IS A VISIT SUMMARY EXTRACTED FROM THE [employer] CHART. IT IS NOT A COPY OF THE [employer] PROGRESS NOTE. MTDD
== END ==
LOC: M PAIN 15:15
PROVIDERS: ATTEND Anesthesiology
DX: G89.29 Other chronic pain (principal); M54.2 Cervicalgia; M54.6 Pain in thoracic spine; M79.18 Myalgia, other site; F41.9 Anxiety disorder, unspecified; F32.9 Major depressive disorder, single episode, unspecified; M41.9 Scoliosis, unspecified; Z86.14 Personal history of Methicillin resistant Staphylococcus aureus infection; F17.210 Nicotine dependence, cigarettes, uncomplicated; Z79.899 Other long term (current) drug therapy; J30.81 Allergic rhinitis due to animal (cat) (dog) hair and dander; Z91.040 Latex allergy status; Z91.018 Allergy to other foods

== ENCOUNTER → 2018-10-31 | Outpatient (CLI) | payer MEDICAID, OTHER ==
--- NOTE | 2018-10-31 12:40 | REPVR ---
EXAM: MR Cervical Spine Without Contrast EXAM DATE/TIME: 10/31/2018 11:13 AM CLINICAL HISTORY: 28 years old, male; Neck pain; Additional info: Cervicalgia TECHNIQUE: Imaging protocol: Multiplanar magnetic resonance images of the cervical spine without contrast. COMPARISON: MRI-Spine,Cervical without con 01/21/2018 1:08 PM FINDINGS: Vertebrae: Unremarkable. Spinal cord: Mild cord compression at C5/6. C2-C3: No significant disc disease. No significant spinal stenosis. C3-C4: No significant disc disease. No significant spinal stenosis. C4-C5: No significant disc disease. No significant spinal stenosis. C5-C6: There is a large right paracentral disc protrusion with an extruded disc fragment that occupies the right lateral recess and abuts the descending right C6 nerve root. There is effacement of the ventral subarachnoid space and indentation of the ventral cervical cord. There is moderate right-sided neuroforaminal narrowing. There is mild spinal canal stenosis. C6-C7: There is mild ventral ridging which flattens the ventral thecal sac. There is a small right paracentral disc protrusion. There is no significant spinal canal stenosis. C7-T1: No significant disc disease. No significant spinal stenosis. Soft tissues: Unremarkable. 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 There is deformity of the cervical cord at this level. Please see details above. Electronically signed by: Chris Silveira On 10/31/2018 12:40:05 PM
--- NOTE | 2018-10-31 12:43 | REPVR ---
EXAM: MR Lumbar Spine Without Contrast. EXAM DATE/TIME: 10/31/2018 11:13 AM CLINICAL HISTORY: 28 years old, male; Low back pain; Additional info: Cervicalgia/lbp TECHNIQUE: Imaging protocol: Multiplanar magnetic resonance images of the lumbar spine without intravenous contrast. COMPARISON: SPINE LUMBOSACRAL PARTIAL 06/11/2018 10:39 AM FINDINGS: Vertebrae: Unremarkable. Spinal cord: Normal signal. No cord compression. L1-L2: No significant disc disease. No significant spinal stenosis. L2-L3: No significant disc disease. No significant spinal stenosis. L3-L4: No significant disc disease. No significant spinal stenosis. L4-L5: No significant disc disease. No significant spinal stenosis. L5-S1: There is disc space narrowing and desiccation. There are moderate degenerative end plate changes at this level. There is a moderate disc bulge with a moderate broad-based central/left paracentral disc herniation. There is compromise of the left lateral recess. There is moderate bilateral neural foraminal narrowing, left worse than right. There is facet arthropathy and ligamentum flavum hypertrophy. Soft tissues: Unremarkable. IMPRESSION: Disc bulge with moderate broad-based central/left paracentral disc herniation at L5/S1. Please see details above. Electronically signed by: Chris Silveira On 10/31/2018 12:42:54 PM
== END ==
LOC: M RAD 09:25
PROVIDERS: ATTEND Family Medicine
DX: M50.222 Other cervical disc displacement at C5-C6 level (principal); M51.27 Other intervertebral disc displacement, lumbosacral region

== ENCOUNTER → 2018-11-07 | Outpatient (REF) | payer OTHER ==
[2018-11-07 17:56] LABS: BASO % 0.6 % (0.0-1.0); EOS # 0.1 10^3/uL (0.0-0.50); EOS % 1.4 % (0.0-3.0); HEMATOCRIT 49.1 % (42.0-52.0); HEMOGLOBIN 16.8 g/dl (13.5-17.5); LYMPH % 31.1 % (24.0-44.0); MEAN CORPUSCULAR HEMOGLOBIN 31.5 pg (27.0-33.0); MEAN CORPUSCULAR HGB CONC 34.2 g/dl (32.0-36.5); MEAN CORPUSCULAR VOLUME 91.9 fl (80.0-96.0); MONO # 0.3 10^3/uL (0.0-0.8); NEUTROPHILS # 3.9 10^3/uL (1.8-7.7); NEUTROPHILS % 61.4 % (36.0-66.0); PLATELET COUNT, AUTOMATED 259 10^3/uL (150-450); RED BLOOD COUNT 5.34 10^6/uL (4.30-6.10); WHITE BLOOD COUNT 6.4 10^3/uL (4.0-10.0)
[2018-11-07 18:22] LABS: ALBUMIN 4.2 GM/DL (3.2-5.2); ALT/SGPT 32 U/L (12-78); BILIRUBIN,TOTAL 0.5 MG/DL (0.2-1.0); BLOOD UREA NITROGEN 9 MG/DL (7-18); CALCIUM LEVEL 9.1 MG/DL (8.5-10.1); CARBON DIOXIDE LEVEL 33 MEQ/L (21-32); CHLORIDE LEVEL 102 MEQ/L (98-107); CHOLESTEROL LEVEL 190 MG/DL (<200); CREATININE FOR GFR 0.96 MG/DL (0.70-1.30); FREE T4 1.02 NG/DL (0.76-1.46); GLOMERULAR FILTRATION RATE > 60.0 (>60); GLUCOSE, FASTING 111 MG/DL (70-100); HDL CHOLESTEROL 38 MG/DL (>40); LDL CHOLESTEROL 130 MG/DL (<100); NON-HDL-C 152 MG/DL; POTASSIUM SERUM 4.1 MEQ/L (3.5-5.1); SODIUM LEVEL 141 MEQ/L (136-145); TOTAL PROTEIN 7.5 GM/DL (6.4-8.2); TRIGLYCERIDES LEVEL 111 MG/DL (<150)
[2018-11-07 18:26] LABS: TOTAL 25(OH) VITAMIN D 27.6 NG/ML (30.0-100.0)
[2018-11-07 18:42] LABS: HEMOGLOBIN A1c 5.7 %
[2018-11-10 00:06] LABS: Lyme Disease IgG/IgM Antibodie <0.91 ISR (0.00-0.90); Lyme Disease IgM Ab Quantitati <0.80 index (0.00-0.79)
== END ==
LOC: M LAB REF 16:45
PROVIDERS: ATTEND Family Medicine Addiction Medicine
DX: Z13.228 Encounter for screening for other metabolic disorders (principal)

== ENCOUNTER → 2018-11-07 | Outpatient (REF) | payer OTHER ==
[2018-11-07 18:15] LABS: APPEARANCE, URINE CLEAR (CLEAR); BACTERIA, URINE AUTO NEGATIVE (NEGATIVE); BILIRUBIN, URINE AUTO NEGATIVE (NEGATIVE); BLOOD, URINE BLOOD NEGATIVE (NEGATIVE); COLOR, URINE YELLOW (YELLOW); GLUCOSE, URINE (UA) AUTO NEGATIVE (NEGATIVE); KETONE, URINE AUTO NEGATIVE (NEGATIVE); LEUKOCYTE ESTERASE, URINE AUTO NEGATIVE (NEGATIVE); MUCUS, URINE SMALL (NEGATIVE); NITRITE, URINE AUTO NEGATIVE (NEGATIVE); PROTEIN, URINE AUTO NEGATIVE (NEGATIVE); RBC, URINE AUTO 1 /HPF (0-3); SPECIFIC GRAVITY URINE AUTO 1.015 (1.002-1.035); SQUAMOUS EPITHELIAL CELL UR AU 0 /HPF (0-6); UROBILINOGEN, URINE AUTO 0.2 mg/dL (0.0-2.0); WBC, URINE AUTO 1 /HPF (0-3)
[2018-11-18 11:21] LABS: CANNABINOID, URINE Positive (Cutoff=20); CARBOXY THC (GC/MS) >300 ng/mL (Cutoff=10); CREATININE, URINE 160.4 mg/dL (20.0-300.0)
== END ==
LOC: M LAB REF 16:37
PROVIDERS: ATTEND Family Medicine
DX: Z13.228 Encounter for screening for other metabolic disorders (principal)

== ENCOUNTER → 2018-11-18 | Outpatient (CLI) | payer OTHER ==
[~2018-11-18] MED LIST changes: +BUPR150T5; +METH20CA14; +ROBA750T4 PO
--- NOTE | 2018-11-19 08:23 | REP ---
Cervical spine series: Four views. History: Spondylosis with radiculopathy. Comparison cervical spine radiographs are from June 01, 2017. Findings: There is straightening of the normal cervical lordosis. Cervical vertebral body heights are preserved. Alignment is otherwise normal. There is mild degenerative disc narrowing at C6-7 unchanged from the comparison study. Flexion/extension lateral views are included in the study and these show normal range of flexion extension motion without instability or subluxation. AP view shows a mild dextroconvex curve in the cervical spine which is unchanged from May 29, 2017. Impression: Straightening and mild degenerative disc changes at C6-7. Stable findings from June 01, 2017. No subluxation or instability seen. Electronically Signed by Yg Garcia MD 11/19/2018 07:25 P
== END ==
LOC: M RAD 15:58
PROVIDERS: ATTEND Physician Assistant
DX: M50.323 Other cervical disc degeneration at C6-C7 level (principal); M47.22 Other spondylosis with radiculopathy, cervical region

== ENCOUNTER → 2018-12-11 | Outpatient (REF) | payer OTHER ==
[2018-12-11 17:29] LABS: BASO % 0.5 % (0.0-1.0); EOS # 0.2 10^3/uL (0.0-0.5); EOS % 2.4 % (0.0-3.0); HEMATOCRIT 44.6 % (42.0-52.0); HEMOGLOBIN 15.5 g/dl (13.5-17.5); LYMPH # 2.3 10^3/uL (1.5-5.0); LYMPH % 30.2 % (24.0-44.0); MEAN CORPUSCULAR HEMOGLOBIN 31.1 pg (27.0-33.0); MEAN CORPUSCULAR HGB CONC 34.8 g/dl (32.0-36.5); MEAN CORPUSCULAR VOLUME 89.6 fl (80.0-96.0); MONO # 0.5 10^3/uL (0.0-0.8); MONO % 6.6 % (0.0-5.0); NEUTROPHILS # 4.5 10^3/uL (1.5-8.5); NEUTROPHILS % 59.8 % (36.0-66.0); PLATELET COUNT, AUTOMATED 231 10^3/uL (150-450); RED BLOOD COUNT 4.98 10^6/uL (4.30-6.10); WHITE BLOOD COUNT 7.6 10^3/uL (4.0-10.0)
[2018-12-11 17:45] LABS: ALBUMIN 3.9 GM/DL (3.2-5.2); ALT/SGPT 53 U/L (12-78); BILIRUBIN,TOTAL 0.4 MG/DL (0.2-1.0); BLOOD UREA NITROGEN 9 MG/DL (7-18); CALCIUM LEVEL 8.8 MG/DL (8.5-10.1); CARBON DIOXIDE LEVEL 31 MEQ/L (21-32); CHLORIDE LEVEL 107 MEQ/L (98-107); CHOLESTEROL LEVEL 179 MG/DL (<200); CHOLESTEROL RISK RATIO 5.264 (<5); CREATININE FOR GFR 0.86 MG/DL (0.70-1.30); FREE T4 0.95 NG/DL (0.76-1.46); GLOMERULAR FILTRATION RATE > 60.0 (>60); GLUCOSE, FASTING 90 MG/DL (70-100); HDL CHOLESTEROL 34 MG/DL (>40); LDL CHOLESTEROL 107 MG/DL (<100); NON-HDL-C 145 MG/DL; POTASSIUM SERUM 4.2 MEQ/L (3.5-5.1); SODIUM LEVEL 143 MEQ/L (136-145); TOTAL 25(OH) VITAMIN D 21.6 NG/ML (30.0-100.0); TOTAL PROTEIN 7.1 GM/DL (6.4-8.2); TRIGLYCERIDES LEVEL 189 MG/DL (<150)
[2018-12-11 18:40] LABS: HEMOGLOBIN A1c 5.5 %
[2018-12-14 00:06] LABS: Lyme Disease IgG/IgM Antibodie <0.91 ISR (0.00-0.90); Lyme Disease IgM Ab Quantitati <0.80 index (0.00-0.79)
== END ==
LOC: M LAB REF 16:59
PROVIDERS: ATTEND Family Medicine
DX: M25.50 Pain in unspecified joint (principal); Z13.228 Encounter for screening for other metabolic disorders

== ENCOUNTER 2019-04-07 13:07 | Emergency (ER) | payer OTHER ==
[~2019-04-07] VITALS: Ht 177.8 cm; Wt 93.3 kg
[~2019-04-07 13:07] MED LIST changes: -BUPR150T5; -METH20CA14; -ROBA750T4 PO
[2019-04-07] MEDS ORDERED: METH20CA14 (13:14)
[2019-04-07] MEDS ORDERED: BUPR150T5 (13:14)
[2019-04-07] MEDS ORDERED: IBUPROFEN 800 MG TAB PO ONE (15:15)
--- NOTE | 2019-04-07 15:33 | REP ---
CT cervical spine: 04/07/2019. Indication: Neck pain. Restricted range of motion. Comparison: 10/31/2018. Technique: Unenhanced axial CT images of the cervical spine were performed with coronal and sagittal reconstructions provided. Findings: There is no acute fracture, subluxation or dislocation. There is straightening of the cervical lordosis. Disc arthrodesis is noted at C5/C6. There is no hemorrhage within the spinal canal. No severe spinal canal or neural foraminal narrowing is detected by this technique. No fluid collections within the paraspinal soft tissues are present. Impression: No acute osseous injuries of the cervical spine. Postoperative sequelae at C5/C6. No severe spinal canal or neural foraminal narrowing detected. Electronically Signed by Tommy Cortes DO 04/07/2019 03:25 P
[2019-04-07 15:38] LABS: BASO % 0.4 % (0.0-1.0); EOS # 0.1 10^3/uL (0.0-0.5); EOS % 1.1 % (0.0-3.0); HEMATOCRIT 45.7 % (42.0-52.0); HEMOGLOBIN 16.1 g/dl (13.5-17.5); LYMPH # 2.2 10^3/uL (1.5-5.0); LYMPH % 30.9 % (24.0-44.0); MEAN CORPUSCULAR HEMOGLOBIN 30.7 pg (27.0-33.0); MEAN CORPUSCULAR HGB CONC 35.2 g/dl (32.0-36.5); MONO # 0.7 10^3/uL (0.0-0.8); MONO % 9.1 % (0.0-5.0); NEUTROPHILS # 4.1 10^3/uL (1.5-8.5); NEUTROPHILS % 58.2 % (36.0-66.0); PLATELET COUNT, AUTOMATED 237 10^3/uL (150-450); RED BLOOD COUNT 5.25 10^6/uL (4.30-6.10); WHITE BLOOD COUNT 7.1 10^3/uL (4.0-10.0)
[2019-04-07 15:59] LABS: BLOOD UREA NITROGEN 12 MG/DL (7-18); CARBON DIOXIDE LEVEL 28 MEQ/L (21-32); CHLORIDE LEVEL 105 MEQ/L (98-107); CREATININE FOR GFR 0.94 MG/DL (0.70-1.30); ERYTHROCYTE SEDIMENTATION RATE 3 mm/hr (0-15); GLOMERULAR FILTRATION RATE > 60.0 (>60); GLUCOSE, FASTING 84 MG/DL (70-100); POTASSIUM SERUM 3.9 MEQ/L (3.5-5.1); SODIUM LEVEL 141 MEQ/L (136-145)
[2019-04-07 16:00] LABS: C REACTIVE PROTEIN QUANTITATIV 0.35 MG/DL (0.00-0.30); CALCIUM LEVEL 9.2 MG/DL (8.5-10.1)
[2019-04-07] MEDS ORDERED: ROBA750T4 PO (16:32)
[2019-04-07 16:42] VITALS: BP 139/66
== END 2019-04-07 16:49 | disposition home or self-care (01) ==
LOC: M ED 13:07
DX: S16.1XXA Strain of muscle, fascia and tendon at neck level, initial encounter (principal); X58.XXXA Exposure to other specified factors, initial encounter; Y92.89 Other specified places as the place of occurrence of the external cause; I10 Essential (primary) hypertension; F41.9 Anxiety disorder, unspecified; F90.9 Attention-deficit hyperactivity disorder, unspecified type; Z79.899 Other long term (current) drug therapy; Z88.1 Allergy status to other antibiotic agents; Z91.018 Allergy to other foods; Z91.040 Latex allergy status; Z87.891 Personal history of nicotine dependence

== ENCOUNTER → 2019-07-11 | Outpatient (REF) | payer OTHER ==
[~2019-07-11] MED LIST changes: +BUPR150T5; +METH20CA14; +ROBA750T4 PO
[2019-07-11 17:49] LABS: BASO % 0.4 % (0.0-1.0); EOS # 0.1 10^3/uL (0.0-0.5); EOS % 1.6 % (0.0-3.0); HEMATOCRIT 47.8 % (42.0-52.0); HEMOGLOBIN 16.5 g/dl (13.5-17.5); LYMPH # 2.8 10^3/uL (1.5-5.0); LYMPH % 30.6 % (24.0-44.0); MEAN CORPUSCULAR HEMOGLOBIN 30.1 pg (27.0-33.0); MEAN CORPUSCULAR HGB CONC 34.5 g/dl (32.0-36.5); MEAN CORPUSCULAR VOLUME 87.1 fl (80.0-96.0); MONO # 0.5 10^3/uL (0.0-0.8); MONO % 5.8 % (0.0-5.0); NEUTROPHILS # 5.5 10^3/uL (1.5-8.5); NEUTROPHILS % 61.3 % (36.0-66.0); PLATELET COUNT, AUTOMATED 267 10^3/uL (150-450); RED BLOOD COUNT 5.49 10^6/uL (4.30-6.10)
[2019-07-11 17:57] LABS: ALBUMIN 4.4 GM/DL (3.2-5.2); ALT/SGPT 34 U/L (12-78); BILIRUBIN,TOTAL 0.5 MG/DL (0.2-1.0); BLOOD UREA NITROGEN 15 MG/DL (7-18); CALCIUM LEVEL 9.3 MG/DL (8.5-10.1); CARBON DIOXIDE LEVEL 29 MEQ/L (21-32); CHLORIDE LEVEL 106 MEQ/L (98-107); CHOLESTEROL LEVEL 202 MG/DL (<200); CHOLESTEROL RISK RATIO 5.771 (<5); CREATININE FOR GFR 0.83 MG/DL (0.70-1.30); FREE T4 1.16 NG/DL (0.76-1.46); GLOMERULAR FILTRATION RATE > 60.0 (>60); GLUCOSE, FASTING 95 MG/DL (70-100); HDL CHOLESTEROL 35 MG/DL (>40); IRON (FE) 72 UG/DL (65-175); LDL CHOLESTEROL 146 MG/DL (<100); NON-HDL-C 167 MG/DL; POTASSIUM SERUM 4.1 MEQ/L (3.5-5.1); SODIUM LEVEL 140 MEQ/L (136-145); TOTAL PROTEIN 8.1 GM/DL (6.4-8.2); TRIGLYCERIDES LEVEL 106 MG/DL (<150)
[2019-07-11 17:59] LABS: TOTAL 25(OH) VITAMIN D 15.8 NG/ML (30.0-100.0); VITAMIN B12 LEVEL 1041 PG/ML
[2019-07-11 18:00] LABS: FOLATE 15.2 NG/ML
[2019-07-11 18:04] LABS: HEMOGLOBIN A1c 5.4 %
== END ==
LOC: M LAB REF 16:22
PROVIDERS: ATTEND Nurse Practitioner Family
DX: Z00.01 Encounter for general adult medical examination with abnormal findings (principal); R03.0 Elevated blood-pressure reading, without diagnosis of hypertension; Z13.9 Encounter for screening, unspecified; F41.1 Generalized anxiety disorder; M25.50 Pain in unspecified joint; K64.9 Unspecified hemorrhoids; I10 Essential (primary) hypertension

== ENCOUNTER → 2019-07-16 | Outpatient (CLI) | payer OTHER ==
--- NOTE | 2019-07-17 01:19 | ECWPNPC ---
PATIENT NAME: TYLER APPLE : 1990 GENDER: MALE VISIT DATE: 07/16/2019 DISCHARGE DATE: 07/16/19 1434 VISIT LOCKED DATE TIME: PHYSICIAN: HERRERA CAMARENA RESOURCE: HERRERA CAMARENA REASON FOR APPOINTMENT 1. NECK/BACK HISTORY OF PRESENT ILLNESS HISTORY OF PRESENT ILLNESS: 28-YEAR-OLD GENTLEMAN WHO SUFFERS FROM PERSISTENT NECK AND THORACIC PAIN. LAST VISIT WAS WITH DR. DOTSON IN SEPTEMBER 2018. SINCE THEN HE HAS HAD NECK SURGERY IN FEBRUARY 2019 C5-C6/ARTHROPLASTY. WAS DOING WELL POST SURGERY UNTIL 1 MONTH LATER, HE LIFTED HIS SON AND TWISTED IN THE SHOWER AND BEGAN TO HAVE SEVERE NECK PAIN AND NEW ONSET OF LEFT ARM RADICULAR SYMPTOMS. STATES HE WAS UNABLE TO GET THIS EXAMINED BY PRIMARY CARE OR SURGEON. STATES HE HAD TRANSPORTATION ISSUES AND JUST WAS OVERWHELMED. HE WAS HOPING WE COULD DO IMAGING OF THIS AREA. TODAY, I HAVE INFORMED HIM THAT THIS NEW ONSET OF LEFT ARM RADICULAR SYMPTOMS AFTER SURGERY AND AFTER AN INJURY NEED INVESTIGATION FROM PRIMARY CARE AND SURGEON WHO DID NECK SURGERY IN FEBRUARY 2019. WE WOULD NOT BE ABLE TO INTERVENE UNTIL THIS IS EVALUATED. RATING PAIN VAS 9/10. PAIN IS DESCRIBED CONSTANT ACHING, THROBBING AND BURNING. DENIES BOWEL OR BLADDER INCONTINENCE. DENIES SUDDEN ONSET OF LOWER EXTREMITY WEAKNESS OR FALLING. NO RECENT FEVER, ILLNESS OR WEIGHT LOSS. PATIENT HAD A POOR RESPONSE TO INJECTION THERAPY MAINLY DUE TO NERVES AND IS RELUCTANT TO HAVE ANY INJECTION THERAPY BUT MAY CONSIDER IN THE FUTURE WITH IV SEDATION. PAIN THE PATIENT DESCRIBES THE PAIN... FALL RISK SCREENING: SCREENING :NO FALLS REPORTED IN THE LAST YEAR CURRENT MEDICATIONS TAKING METOPROLOL SUCCINATE ER 25 MG TABLET EXTENDED RELEASE 24 HOUR 1 TABLET ORALLY ONCE A DAY NOT-TAKING METHOCARBAMOL 750 MG TABLET 1 TAB ORALLY TID PRN FOR SPASMS AND PAIN NOT-TAKING TIZANIDINE HCL 2 MG TABLET 1 TABLET NEEDED ORALLY FOR SPASMS AND PAIN BEFORE BEDTIME NOT-TAKING CELEBREX 200 MG CAPSULE 1 CAPSULE WITH FOOD ORALLY ONCE A DAY NOT-TAKING CYMBALTA 30 MG CAPSULE DELAYED RELEASE PARTICLES 1 CAPSULE ORALLY FOR PAIN ONCE A DAY, NOTES: DIDN'T LIKE; STOPPED TAKING NOT-TAKING IBUPROFEN 200 MG TABLET 4-5 TAB ORALLY THREE TIMES A DAY NOT-TAKING ALEVE 220 MG TABLET 1 TABLET WITH FOOD OR MILK NEEDED ORALLY EVERY 12 HRS NOT-TAKING MAY USE MEDICAL MARIJUANA VAPOR DIRECTED, NOTES: HAS BEEN SMOKING REGULAR-NOT MEDICAL MEDICATION LIST REVIEWED AND RECONCILED WITH THE PATIENT PAST MEDICAL HISTORY NECK AND BACK PAIN ANXIETY, DEPRESSION, HX ADHD SCOLIOSOS MRSA RIGHT KNEE HEMORRHOIDS ALLERGIES PETS: WATERY EYES AND ITCHING - ALLERGY COCONUTS: THROAT SWELLS - ALLERGY LATEX (FOR ALLERGY USE ONLY): RASH.HIVES - ALLERGY CLINDAMYCIN HCL: NAUSEA/VOMITING/HEARTBURN/ULCERS - ALLERGY SURGICAL HISTORY EGD, COLONOSCOPY 04/16/18 C5-6 DISC ARTHROPLASTY 02/12/2019 HEMORRHOID BANDING 06/2019 FAMILY HISTORY FATHER: ALIVE, DIAGNOSED WITH HYPERTENSION, UNSPECIFIED 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 1 SON(S) - HEALTHY. SOCIAL HISTORY GENERAL: TOBACCO USE ARE YOU A:FORMER SMOKER HOW LONG HAS IT BEEN SINCE YOU LAST SMOKED?3-6 MONTHS ADDITIONAL FINDINGS: TOBACCO USERCIGAR SMOKER SMOKING CESSATION INFORMATION GIVEN07/30/2018 OTHERS AT HOME: OTHER NON-RELATIVE, SPOUSE. EDUCATION LEVEL OF EDUCATION:NOT FINISHED COLLEGE DIET: REGULAR. LANGUAGE LANGUAGES SPOKEN:IRISH DOMESTIC VIOLENCE DO YOU FEEL SAFE IN YOUR ENVIRONMENT?YES NEW PATIENT PAIN DIARY TODAY'S VISITNOTES 07/16/2019 PATIENT DESCRIBES PAIN :ACHING, BURNING, HAVE IT ALL THE TIME, THROBBING, SHOOTING FROM 0-10, WHAT LEVEL IS YOUR PAIN TODAY?9 RECREATIONAL DRUG USE DRUG USE?YES MARIJUANA EXERCISE: WALKS. LEARNING BARRIERS / SPECIAL NEEDS CHANGE FROM LAST VISIT?NO BARRIERS TO LEARNING?NO HEARING IMPAIRED?NO VISION IMPAIRED?YES COGNITIVELY IMPAIRED?NO :CORRECTIVE LENSES DOESN'T WEAR READINESS TO LEARN?YES LEARNING PREFERENCES?NO LEARNING CAPABILITIES PRESENT?YES EMOTIONAL BARRIERS?NO SPECIAL DEVICES?NO FORMS BUILDER NEEDED?NO PAIN CLINIC PFS, CLERGY, PUBLIC HEALTH REFERRALS PFS REFERRAL NEEDED?NO CLERGY REFERRAL NEEDED?NO PUBLIC HEALTH REFERRAL NEEDED?NO WAS THE PROVIDER NOTIFIED OF ANY PERTINENT INFO?YES N/A HAS THE PATIENT BEEN EDUCATED REGARDING HIS/HER PLAN OF CARE?YES HAS THE PATIENT BEEN EDUCATED REGARDING PAIN, THE RISK FOR PAIN, THE IMPORTANCE OF EFFECTIVE PAIN MANAGEMENT, AND THE PAIN ASSESSMENT PROCESS?YES LATEX QUESTIONNAIRE LATEX ALLERGY : HAVE YOU EVER DEVELOPED ANY TYPE OF REACTION AFTER HANDLING LATEX PRODUCTS SUCH RUBBER GLOVES, CONDOMS, DIAPHRAGMS, BALLOONS, SOCKS, OR UNDERWEAR?YES - PLEASE INDICATE :RUBBER GLOVES LATEX ALLERGY : HAVE YOU EVER DEVELOPED ANY TYPE OF REACTION DURING OR AFTER DENTAL APPOINTMENT, VAGINAL/RECTAL EXAMINATION, SURGICAL PROCEDURE, OR ANY OTHER EXPOSURE?NO LATEX RISK : HAVE YOU EVER HAD ANY DIFFICULTY BREATHING OR HIVES AFTER EATING OR HANDLING ANY FRUITS, OR VEGETABLES; SUCH KIWI, BANANAS, STONE FRUITS, OR CHESTNUTSNO LATEX RISK : DO YOU HAVE A PREVIOUS PERSONAL HISTORY OF MORE THAN NINE SURGERIES, SPINA BIFIDA, OR REPEATED CATHERIZATIONS? NO LATEX RISK : ARE YOU FREQUENTLY EXPOSED TO LATEX PRODUCTS IN YOUR OCCUPATION?NO DATE ASKED : 07/16/2019 CAFFEINE CAFFEINE USE?YES HOW OFTEN AND HOW MUCH? OCCASIONAL CUP OF COFFEE ADVANCE DIRECTIVE ADVANCE DIRECTIVE DISCUSSED WITH PATIENT:YES PATIENT DOES NOT HAVE ANY ADVANCED DIRECTIVES AND HE DECLINED INFORMATION ON HCP AT THIS TIME. ORTHODOXY [id number] ATHEIST MARITAL STATUS: SINGLE. 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 HOSPITALIZATION/MAJOR DIAGNOSTIC PROCEDURE SURGERY RELATED REVIEW OF SYSTEMS REVIEWED BY: PROVIDER: HERRERA CONTRERAS . CONSTITUTIONAL: ANY CHANGE IN YOUR MEDICAL CONDITION? NO . CHILLS NO . FEVER NO . INFECTION: DO YOU HAVE NEW INFECTIONS? NO . DO YOU HAVE HISTORY OF MRSA? NO . MUSCULOSKELETAL: ANY NEW PATTERNS OF PAIN OR NUMBNESS? YES, PAIN INTO LEFT SHOULDER NOW . GASTROENTEROLOGY: ANY NEW CHANGE IN BOWEL CONTROL? NO . GENITOURINARY: ANY NEW CHANGE IN BLADDER CONTROL? NO . IS THERE A CHANCE YOU COULD BE ? NO . HEMATOLOGY/LYMPH: DO YOU TAKE ANY BLOOD THINNERS? (FOR EXAMPLE- COUMADIN, PLAVIX, AGGRENOX, PLATEL, PRADAXA, OR XARELTO) NO . WHEN WAS YOUR LAST DOSE? DATE: TIME: . NEUROLOGY: HAVE YOU FALLEN IN THE PAST 12 MONTHS? YES, STATES MULTIPLE FALLS, NO MAJOR INJURIES, NO ED VISITS . ANY NEW EXTREMITY NUMBNESS OR WEAKNESS? NO . CARDIOLOGY: DO YOU HAVE A PACEMAKER OR DEFIBRILLATOR? NO . RESPIRATORY: HAVE YOU BEEN SICK IN THE PAST WEEK? NO . FEVER NO . FLU LIKE SYMPTOMS? NO . COUGH NO . INTEGUMENTARY: DO YOU HAVE ANY RASHES OR OPEN SORES? NO . ALLERGIC/IMMUNO: ARE YOU ALLERGIC TO IV DYE? NO . ANY NEW ALLERGIES? NO . PSYCHIATRIC: DO YOU HAVE THOUGHTS OF HURTING YOURSELF OR SOMEONE ELSE? NO . ARE YOU ABUSED, NEGLECTED, OR IN AN UNSAFE ENVIRONMENT? NO . ENDOCRINOLOGY: ARE YOU DIABETIC? NO, BORDERLINE . OTHER: DO YOU NEED ANY PRESCRIPTIONS? NO . IF YES, PLEASE LIST: ____ . ANY NEW PROBLEMS WITH YOUR MEDICATIONS? NO . WHEN DID YOU LAST EAT? ____ . WHEN DID YOU LAST DRINK? ____ . WHAT DID YOU LAST DRINK? ____ . NAME OF PERSON DRIVING YOU HOME? ____ . DO YOU HAVE ANY OTHER QUESTIONS OR CONCERNS NO . VITAL SIGNS WT 210.0 LBS, HT 71 IN, BMI 29.29 INDEX, BP 171/98 MM HG, HR 110 /MIN, RR 18 /MIN, TEMP 97.7 F, OXYGEN SAT % 97%, SAFE IN ENV? (Y/N) YES, NA INITIALS AW 1323, REVIEWED BY: ANABEL07/16/2019 DISCUSSED ELEVATED BP WITH PATIENT. STATES HE JUST STARTED BP MEDICATION A FEW DAYS AGO AND IS BEING FOLLOWED BY HIS PCP FOR HIS ELEVATED BP. JS. EXAMINATION GENERAL EXAMINATION: GENERALNO ACUTE DISTRESS, WELL NOURISHED AND HYDRATED. HEENT:EOMI, NO SCLERAL ICTERUS, NARES PATENT, ORAL MUCOSA MOIST. FACE:UNREMARKABLE. NECK:NO LYMPHADENOPATHY, SUPPLE, NO THYROMEGALLY, NO JVD OR BRUITS. LUNGS: LUNG SOUNDS ARE CLEAR . HEART: HEART RATE REGULAR . MUSCULOSKELETAL:*, MUSCLE STRENGTH TESTING 5/5 BILATERAL UPPER EXTREMITIES. . CERVICAL:+ FOR PAIN WITH PALPATION OF CERVICAL SPINE. + FOR PAIN WITH PALPATION OF CERVICAL PARASPINALS. . ASSESSMENTS CERVICALGIA - M54.2 (PRIMARY) TREATMENT CERVICALGIA NOTES: ADVISED PATIENT TO HAVE COMPLETE EXAM BY PRIMARY CARE WITH POSSIBLE REFERRAL TO SURGEON FOR NEW ONSET OF LEFT ARM RADICULAR SYMPTOMS AND SEVERE NECK PAIN POST INJURY. PROCEDURE CODES FA211 ESTABILISHED PATIENT [facility]ACILITY CHARGE DISPOSITION & COMMUNICATION FOLLOW UP PATIENT WILL CALL TO SCHEDULE FOLLOW-UP ELECTRONICALLY SIGNED BY BEN LANGE ON 07/16/2019 AT 02:33 PM EDT DISCLAIMER : THIS IS A VISIT SUMMARY EXTRACTED FROM THE [employer] CHART. IT IS NOT A COPY OF THE [facility] PROGRESS NOTE. MTDD
== END ==
LOC: M PAIN 13:30
PROVIDERS: ATTEND Nurse Practitioner Family
DX: M54.2 Cervicalgia (principal); Z79.899 Other long term (current) drug therapy; Z87.891 Personal history of nicotine dependence; Z88.1 Allergy status to other antibiotic agents; Z91.018 Allergy to other foods; Z91.040 Latex allergy status; Z91.81 History of falling

== ENCOUNTER 2019-12-05 23:08 | Emergency (ER) | payer MEDICAID, OTHER ==
[~2019-12-05] VITALS: Ht 177.8 cm; Wt 95.5 kg
[2019-12-05 23:27] VITALS: BP 167/93
[2019-12-06 00:45] LABS: BASO # 0.1 10^3/uL (0.0-0.2); BASO % 0.3 % (0.0-1.0); EOS # 0.1 10^3/uL (0.0-0.5); EOS % 0.7 % (0.0-3.0); HEMATOCRIT 46.6 % (42.0-52.0); HEMOGLOBIN 16.5 g/dl (13.5-17.5); LYMPH # 3.6 10^3/uL (1.5-5.0); LYMPH % 22.8 % (24.0-44.0); MEAN CORPUSCULAR HEMOGLOBIN 30.7 pg (27.0-33.0); MEAN CORPUSCULAR HGB CONC 35.4 g/dl (32.0-36.5); MEAN CORPUSCULAR VOLUME 86.6 fl (80.0-96.0); MONO # 1.1 10^3/uL (0.0-0.8); MONO % 6.9 % (0.0-5.0); NEUTROPHILS # 10.9 10^3/uL (1.5-8.5); NEUTROPHILS % 68.9 % (36.0-66.0); PLATELET COUNT, AUTOMATED 274 10^3/uL (150-450); RED BLOOD COUNT 5.38 10^6/uL (4.30-6.10); WHITE BLOOD COUNT 15.9 10^3/uL (4.0-10.0)
[2019-12-06] MEDS ORDERED: ISOVUE-370 76% 100ML VIAL As Ordered ONE (01:23)
--- NOTE | 2019-12-06 01:48 | REPVR ---
PROCEDURE INFORMATION: Exam: CT Maxillofacial With Contrast Exam date and time: 12/06/2019 1:06 AM Age: 29 years old Clinical indication: Mass, lump, or swelling; Mouth; Additional info: Swelling to right lip area, febrile, leukocytosis TECHNIQUE: Imaging protocol: Computed tomography images of the face with intravenous contrast. Radiation optimization: All CT scans at this facility use at least one of these dose optimization techniques: automated exposure control; mA and/or kV adjustment per patient size (includes targeted exams where dose is matched to clinical indication); or iterative reconstruction. Contrast material: ISO; Contrast volume: 75 ml; Contrast route: INTRAVENOUS (IV); COMPARISON: No relevant prior studies available. FINDINGS: Orbits: Orbits are normal. Globes are unremarkable. Bones/joints: No acute fracture. Sinuses: Normal. No air-fluid levels. Soft tissues: Prominent soft tissue swelling mid edema in the right anterior facial/perioral soft tissues. Two probable small foci of fluid are noted in the right lower lip in the area of soft tissue swelling measuring 6 mm suggesting small microabscesses. Lymph nodes: Mildly enlarged cervical and submental lymph nodes. No other abscess or drainable fluid collections. IMPRESSION: Right facial cellulitis with 2 probable small microabscesses. No other fluid collections are seen. Evaluation of portions of the facial soft tissues is limited by streak artifact from the patient's dental work. Electronically signed by: Uche Byers On 12/06/2019 01:47:51 AM
[2019-12-06] MEDS ORDERED: BACT800T5 PO (01:58)
[2019-12-06] MEDS ORDERED: BACTRIM 160MG/800MG DS TAB PO ONE (02:00)
== END 2019-12-06 02:11 | disposition home or self-care (01) ==
LOC: M ED 23:08
DX: L03.211 Cellulitis of face (principal); I10 Essential (primary) hypertension; Z79.899 Other long term (current) drug therapy; Z91.040 Latex allergy status; Z91.018 Allergy to other foods; Z88.1 Allergy status to other antibiotic agents
CPT/HCPCS: 70487; 80047; 83605; 85025; 87040; 99283; Q9967

== ENCOUNTER 2020-01-20 17:24 | Emergency (ER) | payer OTHER ==
[2020-01-20] MEDS ORDERED: METO1TAB7 (17:38)
[2020-01-20] MEDS ORDERED: GABA-843 (17:38)
[2020-01-20] MEDS ORDERED: DULO1CAP6 (17:38)
[2020-01-20] MEDS ORDERED: KETOROLAC 60MG 2ML VIAL IM ONE (18:30)
[2020-01-20] MEDS ORDERED: GABAPENTIN 300 MG CAP PO ONE (18:30)
[2020-01-20] MEDS ORDERED: methocarbamoL 750 MG TAB PO ONE (18:30)
[2020-01-20] MEDS ORDERED: traMADol 50 MG TAB PO ONE (20:00)
[2020-01-20] MEDS ORDERED: KETO10TAB PO (20:55)
[2020-01-20] MEDS ORDERED: CYCL5TAB PO (20:55)
[2020-01-20 21:04] VITALS: BP 158/92
== END 2020-01-20 21:07 | disposition home or self-care (01) ==
LOC: M ED 17:24
DX: M54.5 Low back pain (principal); G89.29 Other chronic pain; I10 Essential (primary) hypertension; R51.9 Headache, unspecified; K58.9 Irritable bowel syndrome, unspecified; Z88.1 Allergy status to other antibiotic agents; Z91.018 Allergy to other foods; Z91.040 Latex allergy status; Z79.899 Other long term (current) drug therapy
CPT/HCPCS: 96372; 99283; J1885

== ENCOUNTER → 2020-02-10 | Outpatient (CLI) | payer OTHER ==
[~2020-02-10] MED LIST changes: +CYCL5TAB PO; +DULO1CAP6; +GABA-843; +KETO10TAB PO; +METO1TAB7
--- NOTE | 2020-02-11 23:34 | ECWPNPC ---
PATIENT NAME: TYLER APPLE : 1990 GENDER: MALE VISIT DATE: 02/10/2020 DISCHARGE DATE: 02/10/20 1149 VISIT LOCKED DATE TIME: PHYSICIAN: HERRERA CAMARENA RESOURCE: HERRERA CAMARENA REASON FOR APPOINTMENT 1. NECK /BACK PAIN HISTORY OF PRESENT ILLNESS DEPRESSION SCREENING: PHQ-2 (2015 EDITION) LITTLE INTEREST OR PLEASURE IN DOING THINGS?NOT AT ALL FEELING DOWN, DEPRESSED, OR HOPELESS?NOT AT ALL TOTAL SCORE0 GENERAL: PATIENT COMES IN FOR FOLLOW-UP TODAY. LAST VISIT WAS SEVERAL MONTHS AGO FOR NECK PAIN. TODAY CHIEF AREA OF PAIN IS LOWER BACK. THIS BEGAN A COUPLE OF MONTHS AGO AFTER LIFTING HEAVY WEIGHTS. HE HAS NOT BEEN EVALUATED BY PRIMARY CARE FOR THIS COMPLAINT. HAS BEEN NONCOMPLIANT WITH MEDICATIONS FOR BLOOD PRESSURE AND MENTAL HEALTH. ADMITS TO NOT LIKING MEDICAL PEOPLE BECAUSE THEY DON'T DO ANYTHING FOR HELP. INFORMED HIM TODAY THAT WE WOULD NEED A REFERRAL FOR HIS LOWER BACK FROM PRIMARY CARE. HE STATES HE HAS APPOINTMENT WITH PRIMARY CARE NEXT WEEK. DENIES HOMICIDAL OR SUICIDAL IDEATIONS. -. FALL RISK SCREENING: SCREENING :NO FALLS REPORTED IN THE LAST YEAR SMALL FALL CAUGHT HIMSELF PAIN SCREENING: PATIENT HAS A COMPLAINT OF ACUTE OR CHRONIC PAIN :YES LOCATION OF PAIN:NECK, MID BACK, LOW BACK INTENSITY OF PAIN (SCALE OF 1 TO 10):10 WHAT DOES YOUR PAIN FEEL LIKE:ACHING, BURNING DURATION:CONTINOUS PAIN IS INCREASED BY:ACTIVITIES PAIN IS DECREASED BY:USE OF PAIN MEDICATIONS, OTHERS NURSING NOTE: -. PAIN CENTER INTAKE QUESTIONS: DO YOU HAVE A HISTORY OF MRSA? :YES WITH IN THE PAST YEARS HAD IT TIMES WITHIN THE 5 YEARS, LAST FLARE UP WAS OVER AYEAR AGO DO YOU TAKE A BLOOD THINNERS? :NO DO YOU HAVE ANY BLEEDING DISORDERS? :NO ANY NEW NUMBNESS OR WEAKNESS IN YOUR LEGS OR ARMS? :NO ANY PACEMAKER,DEFIBRILLATOR, OR DORSAL COLUMN STIMULATOR? :NO DO YOU HAVE ANY RASHES OR OPEN SORES? :NO ARE YOU ALLERGIC TO IV DYE? :NO ARE YOU DIABETIC? :NO ANY NEW PROBLEMS WITH YOUR MEDICATIONS? :NO HAVE YOU RECEIVED A VACCINE IN THE PAST 30 DAYS? :NO DO YOU PLAN TO RECEIVE A VACCINE IN THE NEXT 21 DAYS? :NO DO YOU NEED ANY PRESCRIPTION? :NO DO YOU TAKE ANY IMMUNOSUPPRESSIVE MEDICATIONS? :NO IS THERE A CHANCE YOU COULD BE ? :NO ARE YOU BREAST FEEDING? :NO CURRENT MEDICATIONS NOT-TAKING METOPROLOL SUCCINATE ER 25 MG TABLET EXTENDED RELEASE 24 HOUR 1 TABLET ORALLY ONCE A DAY NOT-TAKING METHOCARBAMOL 750 MG TABLET 1 TAB ORALLY TID PRN FOR SPASMS AND PAIN NOT-TAKING TIZANIDINE HCL 2 MG TABLET 1 TABLET NEEDED ORALLY FOR SPASMS AND PAIN BEFORE BEDTIME NOT-TAKING CELEBREX 200 MG CAPSULE 1 CAPSULE WITH FOOD ORALLY ONCE A DAY NOT-TAKING CYMBALTA 30 MG CAPSULE DELAYED RELEASE PARTICLES 1 CAPSULE ORALLY FOR PAIN ONCE A DAY, NOTES: DIDN'T LIKE; STOPPED TAKING NOT-TAKING IBUPROFEN 200 MG TABLET 4-5 TAB ORALLY THREE TIMES A DAY NOT-TAKING ALEVE 220 MG TABLET 1 TABLET WITH FOOD OR MILK NEEDED ORALLY EVERY 12 HRS NOT-TAKING MAY USE MEDICAL MARIJUANA VAPOR DIRECTED, NOTES: HAS BEEN SMOKING REGULAR-NOT MEDICAL MEDICATION LIST REVIEWED AND RECONCILED WITH THE PATIENT PAST MEDICAL HISTORY NECK AND BACK PAIN ANXIETY, DEPRESSION, HX ADHD SCOLIOSOS MRSA RIGHT KNEE HEMORRHOIDS ALLERGIES PETS: WATERY EYES AND ITCHING - ALLERGY COCONUTS: THROAT SWELLS - ALLERGY LATEX (FOR ALLERGY USE ONLY): RASH.HIVES - ALLERGY CLINDAMYCIN HCL: NAUSEA/VOMITING/HEARTBURN/ULCERS - ALLERGY SURGICAL HISTORY EGD, COLONOSCOPY 04/16/18 C5-6 DISC ARTHROPLASTY 02/12/2019 HEMORRHOID BANDING 06/2019 FAMILY HISTORY FATHER: ALIVE, DIAGNOSED WITH HYPERTENSION, UNSPECIFIED 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 1 SON(S) - HEALTHY. SOCIAL HISTORY GENERAL: TOBACCO USE ARE YOU A:FORMER SMOKER HOW LONG HAS IT BEEN SINCE YOU LAST SMOKED?3-6 MONTHS ADDITIONAL FINDINGS: TOBACCO USERCIGAR SMOKER SMOKING CESSATION INFORMATION GIVEN07/30/2018 LATEX QUESTIONNAIRE LATEX ALLERGY : HAVE YOU EVER DEVELOPED ANY TYPE OF REACTION AFTER HANDLING LATEX PRODUCTS SUCH RUBBER GLOVES, CONDOMS, DIAPHRAGMS, BALLOONS, SOCKS, OR UNDERWEAR?YES - PLEASE INDICATE :RUBBER GLOVES LATEX ALLERGY : HAVE YOU EVER DEVELOPED ANY TYPE OF REACTION DURING OR AFTER DENTAL APPOINTMENT, VAGINAL/RECTAL EXAMINATION, SURGICAL PROCEDURE, OR ANY OTHER EXPOSURE?NO LATEX RISK : HAVE YOU EVER HAD ANY DIFFICULTY BREATHING OR HIVES AFTER EATING OR HANDLING ANY FRUITS, OR VEGETABLES; SUCH KIWI, BANANAS, STONE FRUITS, OR CHESTNUTSNO LATEX RISK : DO YOU HAVE A PREVIOUS PERSONAL HISTORY OF MORE THAN NINE SURGERIES, SPINA BIFIDA, OR REPEATED CATHERIZATIONS? NO LATEX RISK : ARE YOU FREQUENTLY EXPOSED TO LATEX PRODUCTS IN YOUR OCCUPATION?NO DATE ASKED : 02/10/2020 ALCOHOL SCREENING DID YOU HAVE A DRINK CONTAINING ALCOHOL IN THE PAST YEAR?NO POINTS0 INTERPRETATIONNEGATIVE RECREATIONAL DRUG USE DRUG USE?YES MARIJUANA CAFFEINE CAFFEINE USE?YES HOW OFTEN AND HOW MUCH? 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 DIET: REGULAR. EXERCISE: WALKS. MARITAL STATUS: SINGLE. OTHERS AT HOME: OTHER NON-RELATIVE, SPOUSE. TODAY'S VISIT NOTES 07/16/2019, PATIENT DESCRIBES PAIN : ACHING, BURNING, HAVE IT ALL THE TIME, THROBBING, SHOOTING, FROM 0-10, WHAT LEVEL IS YOUR PAIN TODAY? 9. PAIN CLINIC PFS, CLERGY, PUBLIC HEALTH REFERRALS PFS REFERRAL NEEDED?NO CLERGY REFERRAL NEEDED?NO PUBLIC HEALTH REFERRAL NEEDED?NO WAS THE PROVIDER NOTIFIED OF ANY PERTINENT INFO?YES N/A HAS THE PATIENT BEEN EDUCATED REGARDING HIS/HER PLAN OF CARE?YES HAS THE PATIENT BEEN EDUCATED REGARDING PAIN, THE RISK FOR PAIN, THE IMPORTANCE OF EFFECTIVE PAIN MANAGEMENT, AND THE PAIN ASSESSMENT PROCESS?YES ADVANCE DIRECTIVE ADVANCE DIRECTIVE DISCUSSED WITH PATIENT:YES PATIENT DOES NOT HAVE ANY ADVANCED DIRECTIVES AND HE DECLINED INFORMATION ON HCP AT THIS TIME. HOSPITALIZATION/MAJOR DIAGNOSTIC PROCEDURE SURGERY RELATED REVIEW OF SYSTEMS CONSTITUTIONAL: ANY RECENT FEVER NO . CHILLS NO . WEIGHT CHANGE OF UNKNOWN REASONS NO . GASTROENTEROLOGY: NEW UNEXPLAINABLE CHANGES IN BOWEL CONTROL NO . CONSTIPATION NO . GENITOURINARY: ANY NEW CHANGE IN BLADDER CONTROL? NO . NEUROLOGY: NEW ONSET DIZZINESS OR NEUROLOGICAL CHANGES NOT MENTIONED NO . NEW NUMBNESS OR PAIN PATTERNS NOT MENTIONED AND PERTINENT TO TODAY'S VISIT NO . CARDIOLOGY: NEW CHEST PRESSURE NO . NEW CHEST PAIN NO . RESPIRATORY: UNEXPLAINABLE COUGH NO . NEW SHORTNESS OF BREATH NO . VITAL SIGNS WT 237.0 LBS, HT 71 IN, BMI 33.05 INDEX, BP 173/111 MM HG, HR 92 /MIN, RR 18 /MIN, TEMP 97.8 F, OXYGEN SAT % 97%, SAFE IN ENV? (Y/N) YES, NA INITIALS AW 1052, REVIEWED BY: DEAN SIDHU KNOW ABOUT PT BP. EXAMINATION GENERAL EXAMINATION: GENERALNO ACUTE DISTRESS, WELL NOURISHED AND HYDRATED. PSYCHAPPROPRIATE MOOD AND AFFECT . LUNGS:CLEAR TO AUSCULTATION BILATERALLY, NO WHEEZES, RHONCHI, RALES. HEART:NO MURMURS, REGULAR RATE AND RHYTHM. MUSCULOSKELETAL:MUSCLE STRENGTH TESTING OVER RIGHT LEG IS WEAK COMPARED TO LEFT. MUSCLE STRENGTH TESTING OVER RIGHT LEG CAUSES INCREASE IN LOW BACK PAIN. . LUMBAR: TRIGGER POINTS: NOTED OVER LEFT LUMBAR PARASPINAL. ASSESSMENTS ACUTE PAIN DUE TO TRAUMA - G89.11 (PRIMARY) LOW BACK PAIN - M54.5 TREATMENT ACUTE PAIN DUE TO TRAUMA NOTES: ADVISED TO START TREATMENT FOR ACUTE LOW BACK PAIN WITH PRIMARY CARE. PATIENT WILL CALL US IF FOLLOW-UP IS NECESSARY AFTER HE'S HAD TREATMENT FOR ACUTE LOW BACK PAIN AND THORACIC PAIN BY PRIMARY CARE. PROCEDURE CODES FA211 ESTABILISHED PATIENT [facility] CHARGE DISPOSITION & COMMUNICATION FOLLOW UP PATIENT WILL CALL FOR FOLLOW-UP (REASON: NEW AREA OF PAIN, ACUTE THORACIC BACK PAIN, LOW BACK PAIN) ELECTRONICALLY SIGNED BY BEN LANGE ON 02/11/2020 AT 10:42 AM EST DISCLAIMER : THIS IS A VISIT SUMMARY EXTRACTED FROM THE 5app CHART. IT IS NOT A COPY OF THE 5app PROGRESS NOTE. SHUN
== END ==
LOC: M PAIN 11:00
PROVIDERS: ATTEND Nurse Practitioner Family
DX: G89.11 Acute pain due to trauma (principal); M54.5 Low back pain; F41.9 Anxiety disorder, unspecified; F32.9 Major depressive disorder, single episode, unspecified; J30.81 Allergic rhinitis due to animal (cat) (dog) hair and dander; M41.9 Scoliosis, unspecified; Z87.891 Personal history of nicotine dependence; Z79.899 Other long term (current) drug therapy; Z91.018 Allergy to other foods; Z91.040 Latex allergy status; Z88.1 Allergy status to other antibiotic agents

== ENCOUNTER 2020-09-13 15:47 | Emergency (ER) | payer OTHER ==
[~2020-09-13] VITALS: Ht 180.3 cm; Wt 110.0 kg
[~2020-09-13 15:47] MED LIST changes: -CLIN150C14 PO; +CLIN150C15 PO; +ESCI10TA16 PO; -ESCI10TA2 PO; +GABA-282; -GABA-843; +METH-1164 PO; -METH1TAB40 PO
[2020-09-13] MEDS ORDERED: ASPIRIN 81 MG CHEW TABLET PO ONE (17:05)
[2020-09-13] MEDS ORDERED: METOPROLOL SUCC (TopROL XL) 50MG **XL** TAB PO ONE (17:10)
--- NOTE | 2020-09-13 17:31 | REP ---
INDICATION: CHEST PAIN. COMPARISON: None. TECHNIQUE: Portable FINDINGS: The technique utilized in obtaining the radiograph has magnified the cardiac silhouette and accentuated the interstitial markings. The superior mediastinal structures are midline. The cardiac silhouette is unremarkable in size, shape, and position. The diaphragmatic surfaces of the lungs are regular, and the costophrenic angles are clear. The pulmonary rizvi are clear. The imaged osseous structures are intact. IMPRESSION: There is no acute cardiopulmonary disease. <Electronically signed by Emigdio Sutton > 09/13/20 [id number]
[2020-09-13 17:34] VITALS: BP 156/84
[2020-09-13 17:55] LABS: BASO % 0.5 % (0.0-1.0); EOS # 0.1 10^3/uL (0.0-0.5); EOS % 1.5 % (0.0-3.0); HEMATOCRIT 45.2 % (42.0-52.0); HEMOGLOBIN 16.1 g/dl (13.5-17.5); LYMPH # 2.4 10^3/uL (1.5-5.0); LYMPH % 28.4 % (24.0-44.0); MEAN CORPUSCULAR HEMOGLOBIN 30.6 pg (27.0-33.0); MEAN CORPUSCULAR HGB CONC 35.6 g/dl (32.0-36.5); MEAN CORPUSCULAR VOLUME 85.8 fl (80.0-96.0); MONO # 0.5 10^3/uL (0.0-0.8); MONO % 5.5 % (2.0-8.0); NEUTROPHILS # 5.5 10^3/uL (1.5-8.5); NEUTROPHILS % 63.8 % (36.0-66.0); PLATELET COUNT, AUTOMATED 268 10^3/uL (150-450); RED BLOOD COUNT 5.27 10^6/uL (4.30-6.10); WHITE BLOOD COUNT 8.6 10^3/uL (4.0-10.0)
[2020-09-13 18:00] VITALS: BP 142/92
[2020-09-13 18:25] LABS: ALBUMIN 3.9 GM/DL (3.2-5.2); ALT/SGPT 50 U/L (12-78); BILIRUBIN,DIRECT 0.1 MG/DL (0.0-0.2); BILIRUBIN,TOTAL 0.5 MG/DL (0.2-1.0); BLOOD UREA NITROGEN 11 MG/DL (7-18); CALCIUM LEVEL 9.4 MG/DL (8.5-10.1); CARBON DIOXIDE LEVEL 29 MEQ/L (21-32); CHLORIDE LEVEL 103 MEQ/L (98-107); CK-MB VALUE MASS < 1.0 NG/ML (<3.6); CPK CREATINE PHOSPHOKINASE 116 U/L (39-308); CREATININE FOR GFR 0.89 MG/DL (0.70-1.30); GLOMERULAR FILTRATION RATE > 60.0 (>60); GLUCOSE, FASTING 107 MG/DL (70-100); LIPASE 1066 U/L (73-393); MB/CK RELATIVE INDEX 0.86 (< OR =4); NT-PRO BNP < 5 PG/ML (<125); POTASSIUM SERUM 3.9 MEQ/L (3.5-5.1); SODIUM LEVEL 139 MEQ/L (136-145); TOTAL PROTEIN 7.3 GM/DL (6.4-8.2); TROPONIN I < 0.02 NG/ML (< 0.10)
[2020-09-13] MEDS ORDERED: IBUP-1022 PO (18:48)
[2020-09-13] MEDS ORDERED: METO1TAB7 PO (18:48)
--- NOTE | 2020-09-14 05:33 | ECGEPIP ---
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
== END 2020-09-13 19:04 | disposition home or self-care (01) ==
LOC: M ED 15:47
DX: K85.90 Acute pancreatitis without necrosis or infection, unspecified (principal); I10 Essential (primary) hypertension; R51.9 Headache, unspecified; G89.29 Other chronic pain; Z79.899 Other long term (current) drug therapy; Z88.1 Allergy status to other antibiotic agents; Z91.040 Latex allergy status; Z91.018 Allergy to other foods

== ENCOUNTER → 2020-09-28 | Outpatient (CLI) | payer OTHER ==
[~2020-09-28] MED LIST changes: +IBUP-1022 PO; +METO1TAB7 PO
[2020-09-28 14:07] LABS: HEMATOCRIT 46.5 % (42.0-52.0); MEAN CORPUSCULAR HEMOGLOBIN 30.4 pg (27.0-33.0); MEAN CORPUSCULAR HGB CONC 34.4 g/dl (32.0-36.5); MEAN CORPUSCULAR VOLUME 88.2 fl (80.0-96.0); PLATELET COUNT, AUTOMATED 259 10^3/uL (150-450); RED BLOOD COUNT 5.27 10^6/uL (4.30-6.10); WHITE BLOOD COUNT 8.2 10^3/uL (4.0-10.0)
[2020-09-28 14:31] LABS: HEMOGLOBIN A1c 5.5 %
[2020-09-28 14:38] LABS: ALBUMIN 4.1 GM/DL (3.2-5.2); ALT/SGPT 50 U/L (12-78); BILIRUBIN,TOTAL 0.4 MG/DL (0.2-1.0); BLOOD UREA NITROGEN 11 MG/DL (7-18); CALCIUM LEVEL 9.5 MG/DL (8.5-10.1); CARBON DIOXIDE LEVEL 30 MEQ/L (21-32); CHLORIDE LEVEL 106 MEQ/L (98-107); CHOLESTEROL LEVEL 201 MG/DL (<200); CHOLESTEROL RISK RATIO 4.902 (<5); CREATININE FOR GFR 0.78 MG/DL (0.70-1.30); GLOMERULAR FILTRATION RATE > 60.0 (>60); GLUCOSE, FASTING 86 MG/DL (70-100); HDL CHOLESTEROL 41 MG/DL (>40); LDL CHOLESTEROL 127 MG/DL (<100); LIPASE 106 U/L (73-393); NON-HDL-C 160 MG/DL; POTASSIUM SERUM 4.5 MEQ/L (3.5-5.1); SODIUM LEVEL 140 MEQ/L (136-145); TOTAL PROTEIN 7.3 GM/DL (6.4-8.2); TRIGLYCERIDES LEVEL 164 MG/DL (<150)
== END ==
LOC: M LAB 12:37
PROVIDERS: ATTEND Student in an Organized Health Care Education/Training Program
DX: E78.5 Hyperlipidemia, unspecified (principal)

== ENCOUNTER 2020-10-16 07:21 | Emergency (ER) | payer OTHER ==
[~2020-10-16] VITALS: Ht 180.3 cm; Wt 106.8 kg
[2020-10-16] MEDS ORDERED: LEXA1TAB PO (07:29)
[2020-10-16] MEDS ORDERED: BACT800T5 PO (09:28)
[2020-10-16 09:43] VITALS: BP 165/93
== END 2020-10-16 09:46 | disposition home or self-care (01) ==
LOC: M ED 07:21
DX: L03.317 Cellulitis of buttock (principal); Z86.14 Personal history of Methicillin resistant Staphylococcus aureus infection; I10 Essential (primary) hypertension; R51.9 Headache, unspecified; K58.9 Irritable bowel syndrome, unspecified; M54.9 Dorsalgia, unspecified; Z79.899 Other long term (current) drug therapy; Z91.018 Allergy to other foods; Z91.040 Latex allergy status; Z88.1 Allergy status to other antibiotic agents

== ENCOUNTER 2021-03-05 17:59 | Emergency (ER) | payer OTHER ==
[~2021-03-05] VITALS: Ht 180.3 cm; Wt 107.8 kg
[~2021-03-05 17:59] MED LIST changes: -CLIN150C15 PO; +CLIN150C17 PO; +LEXA1TAB PO
[2021-03-05 18:00] VITALS: BP 157/91
[2021-03-05] MEDS ORDERED: DULO1CAP5 (18:07)
== END 2021-03-06 03:52 | disposition left against medical advice (07) ==
LOC: M ED 17:59
DX: Z53.21 Procedure and treatment not carried out due to patient leaving prior to being seen by health care provider (principal)

== ENCOUNTER → 2021-08-19 | Outpatient (CLI) | payer OTHER ==
[~2021-08-19] MED LIST changes: +BUPR-71; -BUPR150T5; +DULO1CAP5
[2021-08-19 18:22] LABS: ALT/SGPT 43 U/L (12-78); BILIRUBIN,TOTAL 0.6 MG/DL (0.2-1.0); BLOOD UREA NITROGEN 15 MG/DL (7-18); CALCIUM LEVEL 9.7 MG/DL (8.5-10.1); CARBON DIOXIDE LEVEL 31 MEQ/L (21-32); CHLORIDE LEVEL 105 MEQ/L (98-107); CHOLESTEROL LEVEL 213 MG/DL (<200); CREATININE FOR GFR 0.94 MG/DL (0.70-1.30); GLOMERULAR FILTRATION RATE > 60.0 (>60); GLUCOSE, FASTING 81 MG/DL (70-100); POTASSIUM SERUM 4.4 MEQ/L (3.5-5.1); SODIUM LEVEL 140 MEQ/L (136-145); TRIGLYCERIDES LEVEL 128 MG/DL (<150)
[2021-08-19 18:23] LABS: ALBUMIN 4.6 GM/DL (3.2-5.2); CHOLESTEROL RISK RATIO 6.264 (<5); HDL CHOLESTEROL 34 MG/DL (>40); LDL CHOLESTEROL 153 MG/DL (<100); NON-HDL-C 179 MG/DL; TOTAL PROTEIN 8.2 GM/DL (6.4-8.2)
== END ==
LOC: M PLALAB 15:34
PROVIDERS: ATTEND Student in an Organized Health Care Education/Training Program
DX: I10 Essential (primary) hypertension (principal)

== ENCOUNTER 2022-03-09 17:21 | Emergency (ER) | payer OTHER ==
[~2022-03-09] VITALS: Ht 180.3 cm; Wt 108.3 kg
[2022-03-09] MEDS ORDERED: CLON-412 (17:32)
[2022-03-09] MEDS ORDERED: METH-1165 (17:32)
[2022-03-09] MEDS ORDERED: TRAZ-257 (17:32)
[2022-03-09] MEDS ORDERED: CARV6.25 (17:32)
[2022-03-09] MEDS ORDERED: CIPRODEX OTIC SUSP 7.5ML AS ONE (19:20)
[2022-03-09] MEDS ORDERED: CIPR7.5D5 OTIC (19:30)
[2022-03-09 19:47] VITALS: BP 154/112
[2022-03-09] MEDS ORDERED: AMOX875T2 PO (19:52)
== END 2022-03-09 19:52 | disposition home or self-care (01) ==
LOC: M ED 17:21
DX: H66.92 Otitis media, unspecified, left ear (principal); H60.92 Unspecified otitis externa, left ear; I10 Essential (primary) hypertension; K58.9 Irritable bowel syndrome, unspecified; M54.9 Dorsalgia, unspecified; H93.8X2 Other specified disorders of left ear; Z88.1 Allergy status to other antibiotic agents; Z91.040 Latex allergy status; Z91.018 Allergy to other foods

== ENCOUNTER 2022-03-21 01:10 | Emergency (ER) | payer OTHER ==
[~2022-03-21] VITALS: Ht 180.3 cm; Wt 109.1 kg
[~2022-03-21 01:10] MED LIST changes: +AMOX875T2 PO; +CARV6.25; +CIPR7.5D5 OTIC; +CLON-412; +METH-1165; +TRAZ-257
[2022-03-21] MEDS ORDERED: PRED20TA PO (04:14)
[2022-03-21] MEDS ORDERED: PEPC1TAB5 PO (04:14)
[2022-03-21] MEDS ORDERED: BENA25CA4 PO (04:14)
[2022-03-21] MEDS ORDERED: diphenhydrAMINE 25MG CAP PO ONE (04:15)
[2022-03-21] MEDS ORDERED: FAMOTIDINE 20 MG TAB PO ONE (04:15)
[2022-03-21] MEDS ORDERED: predniSONE 20 MG TAB PO ONE (04:15)
[2022-03-21 04:35] VITALS: BP 170/90
== END 2022-03-21 04:39 | disposition home or self-care (01) ==
LOC: M ED 01:10
DX: L50.9 Urticaria, unspecified (principal); K58.9 Irritable bowel syndrome, unspecified; Z88.1 Allergy status to other antibiotic agents; Z91.018 Allergy to other foods; Z91.040 Latex allergy status; Z79.899 Other long term (current) drug therapy
CPT/HCPCS: 99284; J7512

== ENCOUNTER 2022-03-24 07:54 | Emergency (ER) | payer OTHER ==
[~2022-03-24] VITALS: Ht 180.3 cm; Wt 113.2 kg
[~2022-03-24 07:54] MED LIST changes: +BENA25CA4 PO; +PEPC1TAB5 PO; +PRED20TA PO
[2022-03-24 07:55] VITALS: BP 168/104
== END 2022-03-24 11:28 | disposition left against medical advice (07) ==
LOC: M ED 07:54
DX: Z53.21 Procedure and treatment not carried out due to patient leaving prior to being seen by health care provider (principal)

== ENCOUNTER 2022-03-25 05:56 | Emergency (ER) | payer OTHER ==
[~2022-03-25] VITALS: Ht 180.3 cm; Wt 113.3 kg
[2022-03-25 05:57] VITALS: BP 159/82
[2022-03-25] MEDS ORDERED: NS 1,000 ML IV ONE (08:35)
[2022-03-25] MEDS ORDERED: diphenhydrAMINE 50MG/ML VIAL IV ONE (08:35)
[2022-03-25] MEDS ORDERED: methylPREDNISolone 125MG 2ML VIAL IV ONE (08:35)
[2022-03-25 09:22] LABS: BASO % 0.2 % (0.0-1.0); EOS % 0.1 % (0.0-3.0); HEMATOCRIT 47.6 % (42.0-52.0); HEMOGLOBIN 16.3 g/dl (13.5-17.5); LYMPH # 4.4 10^3/uL (1.5-5.0); LYMPH % 28.8 % (24.0-44.0); MEAN CORPUSCULAR HEMOGLOBIN 30.1 pg (27.0-33.0); MEAN CORPUSCULAR HGB CONC 34.2 g/dl (32.0-36.5); MEAN CORPUSCULAR VOLUME 87.8 fl (80.0-96.0); MONO # 0.8 10^3/uL (0.0-0.8); MONO % 5.1 % (2.0-8.0); NEUTROPHILS # 9.8 10^3/uL (1.5-8.5); NEUTROPHILS % 64.5 % (36.0-66.0); PLATELET COUNT, AUTOMATED 334 10^3/uL (150-450); RED BLOOD COUNT 5.42 10^6/uL (4.30-6.10); WHITE BLOOD COUNT 15.2 10^3/uL (4.0-10.0)
[2022-03-25 09:39] LABS: BLOOD UREA NITROGEN 16 MG/DL (9-23); CALCIUM LEVEL 8.6 MG/DL (8.5-10.1); CARBON DIOXIDE LEVEL 29 MMOL/L (20-31); CHLORIDE LEVEL 105 MMOL/L (98-107); CREATININE FOR GFR 0.89 MG/DL (0.70-1.30); GLOMERULAR FILTRATION RATE > 60.0 (>60); GLUCOSE, FASTING 93 MG/DL (60-100); POTASSIUM SERUM 3.9 MMOL/L (3.5-5.1); SODIUM LEVEL 141 MMOL/L (136-145)
[2022-03-25 09:47] LABS: MONO REFLEX EBV COMP NEGATIVE (NEGATIVE)
[2022-03-25 09:54] LABS: ERYTHROCYTE SEDIMENTATION RATE 2 mm/hr (0-15)
[2022-03-25] MEDS ORDERED: FAMOTIDINE 20MG/2ML VIAL IVP ONE (11:15)
[2022-03-25 12:38] LABS: RSV AMPLIFICATION NEGATIVE (NEGATIVE)
[2022-03-28 16:08] LABS: EBV AB TO NUCLEAR ANTIGEN >600.0 U/mL (0.0-17.9); EBV VIRAL CAPSID AG IgM <36.0 U/mL (0.0-35.9)
== END 2022-03-25 14:12 | disposition home or self-care (01) ==
LOC: M ED 05:56
DX: L50.9 Urticaria, unspecified (principal); I10 Essential (primary) hypertension; F90.9 Attention-deficit hyperactivity disorder, unspecified type; Z88.1 Allergy status to other antibiotic agents; Z91.018 Allergy to other foods; Z91.040 Latex allergy status; Z79.899 Other long term (current) drug therapy
CPT/HCPCS: 80048; 85025; 85652; 86140; 86308; 86664; 86665; 87631; 96361; 96374; 96375; 99283; J1200; J2930

== ENCOUNTER 2023-07-25 02:04 | Emergency (ER) | payer OTHER, SELFPAY ==
[~2023-07-25] VITALS: Ht 180.3 cm; Wt 104.3 kg
[2023-07-25 02:05] VITALS: TEMP 96.2; O2SAT 98
[2023-07-25 02:29] VITALS: BP 138/88
== END 2023-07-25 05:58 | disposition left against medical advice (07) ==
LOC: M ED 02:04
DX: Z53.21 Procedure and treatment not carried out due to patient leaving prior to being seen by health care provider (principal)

== ENCOUNTER → 2023-12-13 | Outpatient (CLI) | payer OTHER ==
[~2023-12-13] MED LIST changes: +ONDA-282 PO; -ONDA4TAB6 PO
[2023-12-13 14:21] LABS: APPEARANCE, URINE CLEAR (CLEAR); BACTERIA, URINE AUTO NEGATIVE (NEGATIVE); BILIRUBIN, URINE AUTO NEGATIVE (NEGATIVE); BLOOD, URINE BLOOD NEGATIVE (NEGATIVE); COLOR, URINE YELLOW (YELLOW); GLUCOSE, URINE (UA) AUTO NEGATIVE (NEGATIVE); KETONE, URINE AUTO NEGATIVE (NEGATIVE); LEUKOCYTE ESTERASE, URINE AUTO NEGATIVE (NEGATIVE); MUCUS, URINE SMALL (NEGATIVE); NITRITE, URINE AUTO NEGATIVE (NEGATIVE); PROTEIN, URINE AUTO NEGATIVE (NEGATIVE); RBC, URINE AUTO 0 /HPF (0-3); SPECIFIC GRAVITY URINE AUTO 1.024 (1.002-1.035); SQUAMOUS EPITHELIAL CELL UR AU 0 /HPF (0-6); UROBILINOGEN, URINE AUTO 0.2 mg/dL (0.0-2.0); WBC, URINE AUTO 0 /HPF (0-3)
[2023-12-13 14:26] LABS: HEMATOCRIT 42.7 % (42.0-52.0); HEMOGLOBIN 14.6 g/dl (13.5-17.5); MEAN CORPUSCULAR HEMOGLOBIN 29.6 pg (27.0-33.0); MEAN CORPUSCULAR HGB CONC 34.2 g/dl (32.0-36.5); MEAN CORPUSCULAR VOLUME 86.4 fl (80.0-96.0); PLATELET COUNT, AUTOMATED 247 10^3/uL (150-450); RED BLOOD COUNT 4.94 10^6/uL (4.30-6.10); WHITE BLOOD COUNT 7.6 10^3/uL (4.0-10.0)
[2023-12-13 14:54] LABS: ALBUMIN 4.2 G/DL (3.2-5.2); ALKALINE PHOSPHATASE 78 U/L (46-116); ALT/SGPT 32 U/L (7.0-40); AST/SGOT 16 U/L (<34); BILIRUBIN,TOTAL 0.4 MG/DL (0.3-1.2); BLOOD UREA NITROGEN 17 MG/DL (9-23); CARBON DIOXIDE LEVEL 30 MMOL/L (20-31); CHLORIDE LEVEL 107 MMOL/L (98-107); CHOLESTEROL LEVEL 195 MG/DL (<200); CHOLESTEROL RISK RATIO 5.15 (<5); CREATININE FOR GFR 0.83 MG/DL (0.70-1.30); GLOMERULAR FILTRATION RATE > 60.0 (>60); GLUCOSE, FASTING 96 MG/DL (60-100); HDL CHOLESTEROL 37.8 MG/DL (>40); LDL CHOLESTEROL 137.4 MG/DL (<100); NON-HDL-C 157.2 MG/DL; SODIUM LEVEL 140 MMOL/L (136-145); TOTAL PROTEIN 7.1 G/DL (5.7-8.2); TRIGLYCERIDES LEVEL 99 MG/DL (<150)
[2023-12-13 14:58] LABS: HEMOGLOBIN A1c 5.7 % (4.0-6.0); THYROID STIMULATING HORMONE 1.937 uIU/ML (0.55-4.78)
[2023-12-13 15:00] LABS: FREE T4 1.24 NG/DL (0.89-1.76)
== END ==
LOC: M WUC 09:12
PROVIDERS: ATTEND Physician Assistant
DX: I10 Essential (primary) hypertension (principal)